=== PATIENT | male | born 1950 | race Caucasian/White ===

== ENCOUNTER 2020-05-18 20:58 | Emergency (ER) | payer OTHER, MEDICARE, SELFPAY ==
--- NOTE | ~2020-05-18 | XR_ITS ---
EXAMINATION: XR shoulder LT min 2V INDICATION: Left shoulder pain TECHNIQUE: Four views of the left shoulder are obtained. COMPARISON: None available FINDINGS: There is no fracture. 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 There is mild glenohumeral joint osteoarthritis. The soft tissues are normal. There is a partially imaged d ual-lead cardiac pacemaker of the left chest wall. Also seen are changes of endoluminal cardiac valve repair. IMPRESSION: 1. No acute osseous abnormality. Reviewed, dictated and finalized at location A.
[2020-05-18 20:59] VITALS: BP 158/63; PULSE 70; RESP 19; TEMP 37.3; O2SAT 99
--- NOTE | 2020-05-18 21:20 | ED.GENADULT ---
HPI - General Adult General Chief complaint: Fall Stated complaint: fall Time Seen by Provider: 05/18/20 21:11 Source: patient and family Mode of arrival: ambulatory Limitations: no limitations History of Present Illness HPI narrative: Is a 69-year-old male who presents emergency department for evaluation of left shoulder injury and left balderas injury patient tripped falling into a wall sustaining abrasions to the left balderas. Patient also notes that he injured the left shoulder he has moderate aching pain with decreased range of motion. Patient denies other injuries or complaints specifically no head injury syncope loss of consciousness patient presents per private vehicle. . Patient has not had anything for pain. Related Data Allergies Allergy/AdvReac Type Severity Reaction Status Date / Time protamine Allergy Anaphylactic Verified 05/18/20 21:11 Shock Review of Systems Review of Systems: All systems reviewed & are unremarkable except as noted in HPI and below PMFSH Past Medical History Medical History (Updated 05/18/20 @ 21:46 by Ever Thompson PA-C) Hypertension Obesity Surgical History Surgical History Heart valve replaced History of orthopedic surgery Social History Social History (Updated 05/18/20 @ 21:21 by Ever Thompson PA-C) Smoking status: Never smoker Gender identity (if verbalized by the patient): Male Exam Narrative: Exam Narrative: GENERAL: Well-appearing, well-nourished, and in no acute distress. HEAD: Normocephalic, atraumatic. EYES: PERRLA and EOMI. ENT: Nares clear, no rhinorrhea or epistaxis. Mucous membranes moist. Oropharynx without tonsillar hypertrophy exudate or other lesions. NECK: Supple. No adenopathy or masses. CHEST: Clear to auscultation. No respiratory distress. No wheezes rales or rhonchi HEART: Regular rate and rhythm. No murmur heard. Normal peripheral pulses. ABDOMEN: Soft, nontender, nondistended EXTREMITIES: Tenderness of the left shoulder remainder of extremity nontender. No midline cervical tenderness. SKIN: Warm, dry, no rash. NEURO: No focal deficits. Alert and oriented x3. Cranial nerves II through XII grossly intact. PSYCH: Normal mood and affect. Course Vital Signs Vital signs: Vital Signs Temperature 99.1 F 05/18/20 20:59 Pulse Rate 70 05/18/20 20:59 Respiratory Rate 19 05/18/20 20:59 Blood Pressure 158/63 H 05/18/20 20:59 Pulse Oximetry 99 05/18/20 20:59 Temperature 99.1 F 05/18/20 20:59 Pulse Rate 70 05/18/20 20:59 Respiratory Rate 05/18/20 20:59 Blood Pressure 158/63 H 05/18/20 20:59 Pulse Oximetry 99 05/18/20 20:59 Medical Decision Making MDM Narrative Medical decision making narrative: Patients injury or pain is consistent with musculoskeletal etiology. No signs of neurological or vascular compromise on exam. Compartments and tisues are soft without signs of compartment syndrome. Pain is felt appropriate for further evaluation on an outpatient basis. Patient placed in sling felt appropriate for outpatient reevaluation Vital Signs Vital Signs: Vital Signs Temperature 99.1 F 05/18/20 20:59 Pulse Rate 70 05/18/20 20:59 Respiratory Rate 05/18/20 20:59 Blood Pressure 158/63 H 05/18/20 20:59 Pulse Oximetry 99 05/18/20 20:59 Temperature 99.1 F 05/18/20 20:59 Pulse Rate 70 05/18/20 20:59 Respiratory Rate 05/18/20 20:59 Blood Pressure 158/63 H 05/18/20 20:59 Pulse Oximetry 99 05/18/20 20:59 Discharge Plan Discharge Clinical Impression: Acute pain of left shoulder Patient Disposition: Home, Self-Care Condition: Stable Instructions: Antibiotic Form, Shoulder Pain (ED), How to Use a Sling (ED) Additional Instructions: Follow up with your primary care doctor in 5-7 days for re-evaluation. Go to ER for worsening pain, vision changes, nausea/vomiting, fever/chills, weakness, chest pa
== END 2020-05-18 22:16 | disposition home or self-care (01) ==
PROVIDERS: Emergency Provider Emergency Medicine
DX: M25.512 Pain in left shoulder (principal); I10 Essential (primary) hypertension; E66.9 Obesity, unspecified; Z95.2 Presence of prosthetic heart valve; W01.0XXA Fall on same level from slipping, tripping and stumbling without subsequent striking against object, initial encounter
CPT/HCPCS: 73030; 99283; A4565; A9270

== ENCOUNTER 2020-07-23 23:50 | Inpatient (IN) | payer OTHER, MEDICARE, SELFPAY ==
--- NOTE | ~2020-07-23 | CT_ITS ---
EXAMINATION: CT abdomen pelvis wo con EXAM DATE: 07/24/2020 01:56 INDICATION: Altered mental status, weakness, sepsis. TECHNIQUE: Spiral CT of the abdomen and pelvis was performed without contrast. Axial, coronal and s agittal images were reviewed. The dose-length product (DLP) for this examination was 1665.56 mGy-cm. The exposure was tailored according to patient size (auto mA exposure control), and iterative recon struction (ASIR) was used as additional dose reduction technique. Comparison is made to prior examina tion from 08/27/2014. FINDINGS: The liver, spleen, adrenal glands and pancreas are unremarkable. There is 1.4 cm periphera lly calcified gallstone. Gallbladder otherwise unremarkable and only mildly distended. There is 4 mm left inferior calyceal stone. Punctate right nephrolithiasis. There is mild prostatomegaly. The blad ida is unremarkable. There is no retroperitoneal or pelvic lymphadenopathy. There is moderate scat tered aortic arteriosclerotic disease and mild ectasia. The appendix is not positively visualized. There is no pericecal inflammatory change to suggest appe ndicitis. The stomach and small bowel are unremarkable. There is moderate sigmoid colonic diverticu losis. There is no adjacent inflammatory change to suggest diverticulitis. There is expected amount of colonic stool. No free intraperitoneal gas. Pacemaker, aortic valve replacement, sternotomy wi res. Cardiomegaly. Basilar prominent reticulation, could be mild pulmonary edema. Findings consisten t with ankylosing spondylitis including sacroiliac fusion. There are no osteoblastic or osteolytic le sions identified. IMPRESSION: 1. No acute intra-abdominal findings. 2. Cardiomegaly, possible mild pulmonary edema. 3. Sigmoid diverticulosis. 4. Nephrolithiasis. 5. Cholelithiasis. Reviewed, dictated and finalized at location A.
--- NOTE | ~2020-07-23 | XR_ITS ---
EXAMINATION: XR chest 1V EXAM DATE: 07/24/2020 00:49 INDICATION: Altered mental status. Weakness. TECHNIQUE: Portable AP frontal chest x-ray was obtained. There is no prior study for comparison. FINDINGS: There is a dual lead pacemaker/AICD seen with leads projecting over the expected locations of the right atrial appendage and right ventricle. Sternotomy wires are present without findings to s uggest sternal dehiscence. Aortic valve replacement. There is aortic arteriosclerosis. Elevated right hemidiaphragm with colonic interposition. No confluent consolidation, pneumothorax or pleural effusi on suspected. There are mild bony degenerative changes. IMPRESSION: 1. Elevated right hemidiaphragm with limited lung base evaluation. 2. No definite acute cardiopulmonary findings. Reviewed, dictated and finalized at location A.
--- NOTE | ~2020-07-23 | CT_ITS ---
EXAMINATION: CT brain wo con EXAM DATE: 07/24/2020 00:44 INDICATION: Transient alteration of awareness. Increasing confusion. TECHNIQUE: Spiral CT of the head was performed without contrast. Axial, coronal and sagittal images were reviewed. The dose-length product (DLP) for this examination was 681.00 mGy-cm. The exposure w as tailored according to patient size, and iterative reconstruction (ASIR) was used as additional dos e reduction technique. There is no prior study for comparison. FINDINGS: There is no acute intraparenchymal hemorrhage. No evidence of intraparenchymal brain mass lesion. No evidence of acute infarction. Please note that initial head CT has limited sensitivity f or small or acute infarctions. 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 There is moderat e periventricular and subcortical hypodensity, nonspecific but probably related to small vessel ische andreia disease. There is mild to moderate prominence of the sulci and ventricles related to cerebral a trophy. There is intracranial carotid arteriosclerosis. There are no extra-axial collections. The re is no mass effect or midline shift. The orbits are unremarkable. Soft tissue is unremarkable. T he visualized sinuses and mastoid air cells are well aerated. IMPRESSION: 1. No acute intracranial findings. 2. Chronic age related findings. Reviewed, dictated and finalized at location A.
[2020-07-23 23:54] VITALS: BP 142/62; PULSE 90; RESP 23; O2SAT 95
[2020-07-24] VITALS (8 sets, daily range): BP systolic 122–150; BP diastolic 51–76; PULSE 77–82; RESP 14–25; TEMP 35.8–36.7; O2SAT 93–97; BMI 35.1
[2020-07-24 01:06] LABS: Basophils Absolute Auto 0.2 K/mm3 (0.0-0.1); Basophils Percent Auto 0.5 % (0.2-1.2); Hematocrit 54.7 % (42.0-52.0); Hemoglobin 17.9 g/dL (14.0-18.0); Immature Granulocyte Absolute 0.37 K/mm3 (0.00-0.031); Immature Granulocyte Percent A 1.3 % (0-0.5); Lymphocytes Absolute Auto 1.29 K/mm3 (0.9-3.2); Lymphocytes Percent Auto 4.6 % (18.3-44.2); Mean Corpuscular HGB Conc 32.7 g/dl (32-36); Mean Corpuscular Hemoglobin 29.5 pg (26-34); Mean Corpuscular Volume 90.1 fl (80-100); Mean Platelet Volume 10.1 fl (7.4-10.4); Monocytes Absolute Auto 1.4 K/mm3 (0.1-0.6); Monocytes Percent Auto 5.1 % (2.6-8.5); Neutrophils Absolute Auto 24.7 K/mm3 (1.3-6.7); Neutrophils Percent Auto 88.5 % (45.5-73.1); Platelet Count Result 224 k/mm3 (150-375); Red Blood Count 6.07 M/mm3 (4.6-6.20); Red Cell Distribution Width 18.6 % (11.5-14.5)
[2020-07-24 01:16] LABS: Add Urine Microscopic? YES; Appearance Urine Turbid (Clear); Bacteria Urine 2+ /hpf; Bilirubin Urine Negative (Negative); Blood Urine 2+ (Negative); Color Urine Yellow (Yellow); Glucose Urine UA Negative (Negative); Ketones Urine Negative (Negative); Leukocyte Esterase Ur 3+ LEU/UL (Negative); Mucus Urine Few /lpf; Nitrate Urine Negative (Negative); Protein Urine 2+ mg/dL (Negative); RBC Urine >75 /hpf (0-2); Specific Grav Ur 1.018 (1.001-1.035); Squamous Epithelial Cell Urine Few /hpf (Few); Urobilinogen Urine Negative mg/dL (<2.0); WBC Clumps Urine Present /HPF; WBC Urine >75 /hpf
[2020-07-24 01:24] LABS: Ammonia < 9 umol/L (9-30)
[2020-07-24 01:30] LABS: Alanine Aminotransferase 22 U/L (4-50); Albumin Level 4.9 g/dL (3.5-5.1); Alkaline Phosphatase 95 U/L (38-126); Anion Gap 15 mmol/L (8-16); Aspartate Amino Transferase 43 U/L (17-59); Bilirubin,Total 1.4 mg/dL (0.2-1.3); Blood Urea Nitrogen 37 mg/dL (9-20); Calcium 9.4 mg/dL (8.4-10.2); Carbon Dioxide 31 mmol/L (22-30); Chloride 96 mmol/L (98-107); Estimated CRCL calculation 47 ml/min; Estimated Glomerular Filt Rate 40; Glucose 110 mg/dL (75-110); Potassium 4.6 mmol/L (3.4-5.0); Sodium 142 mmol/L (137-145)
--- NOTE | 2020-07-24 01:58 | ED.AMS ---
HPI - Altered Mental Status General Chief Complaint: Altered Mental Status Stated Complaint: confusion/unsteady gait Time Seen by Provider: 07/23/20 23:55 History of Present Illness HPI narrative: Patient is a 69-year-old male who presents the ER with altered mental status. reports that she came home saying he was sitting on the toilet for an unknown amount of time and was too weak to get off of it. He then was too weak to stand out of bed this evening and fell to the ground urinating on himself. He is unsure what he has been doing for the last day. reports he had decreased p.o. intake yesterday as well and his sugars got low. Denies any fevers or chills or sweats. He has no pain in his chest or abdomen. Related Data Home Medications Medication Instructions Recorded Confirmed apixaban 5 mg PO BID 07/24/20 07/24/20 aspirin 81 mg PO DAILY 07/24/20 07/24/20 budesonide-formoterol 2 puff INHALATION BID 07/24/20 07/24/20 furosemide 40 mg PO DAILY 07/24/20 07/24/20 gabapentin 500 mg PO TID 07/24/20 07/24/20 glipizide 10 mg PO BID 07/24/20 07/24/20 isosorbide mononitrate 15 mg PO DAILY 07/24/20 07/24/20 lisinopril 10 mg PO DAILY 07/24/20 07/24/20 metformin 1,000 mg PO DAILY 07/24/20 07/24/20 metoprolol tartrate 50 mg PO Q12H 07/24/20 07/24/20 oxycodone-acetaminophen 1 tablet PO Q6H PRN 07/24/20 07/24/20 pantoprazole 40 mg PO QAM 07/24/20 07/24/20 prednisone 20 mg PO DAILY 07/24/20 07/24/20 Allergies Allergy/AdvReac Type Severity Reaction Status Date / Time protamine Allergy Anaphylactic Verified 07/24/20 00:46 Shock Review of Systems Review of Systems: ROS unobtainable: Yes unobtainable due to medical condition (Patient oriented x3 but is unsure of the situation causing his er visit) [facility] Past Medical History Medical History (Updated 07/25/20 @ 06:43 by Johnie Harrington MD) Hypertension Obesity Social History Social History (Updated 05/18/20 @ 21:21 by Ever Thompson PA-C) Smoking status: Former smoker Alcohol intake: never Substance use: never Gender identity (if verbalized by the patient): Male Spiritual care concerns: No Exam Narrative: Exam Narrative: GENERAL: Well-appearing, well-nourished, and in no acute distress. HEAD: Normocephalic, atraumatic. ENT: Mucous membranes moist. CHEST: Clear to auscultation. No respiratory distress. HEART: Regular rate and rhythm. Normal peripheral pulses. ABDOMEN: Soft, nontender, nondistended. EXTREMITIES: Normal range of motion. No edema. SKIN: Warm, dry, no rash. NEURO: Alert and oriented x3 but confused about events of the day. Course Course Emergency Course: Patient accepted to hospital service. Ceftriaxone started. Vital Signs Vital signs: Vital Signs Pulse Rate 90 07/23/20 23:54 Respiratory Rate 23 H 07/23/20 23:54 Blood Pressure 142/62 H 07/23/20 23:54 Pulse Oximetry 95 07/23/20 23:54 Temperature 98.2 F 07/25/20 06:22 Pulse Rate 88 07/25/20 06:22 Respiratory Rate 16 07/25/20 06:22 Blood Pressure 162/79 H 07/25/20 06:22 Pulse Oximetry 98 07/25/20 06:22 MDM - Altered Mental Status Lab Data Result diagrams: 07/25/20 05:37 07/25/20 05:37 Labs: Lab Results 07/24/20 07/24/20 07/24/20 Range/Units 00:49 00:49 00:49 WBC 28.0 H (4.5-10.0) K/mm3 RBC 6.07 (4.6-6.20) M/mm3 Hgb 17.9 (14.0-18.0) g/dL Hct 54.7 H (42.0-52.0) % MCV 90.1 (80-100) fl MCH 29.5 (26-34) pg MCHC 32.7 (32-36) g/dl RDW 18.6 H (11.5-14.5) % Plt Count 224 (150-375) k/mm3 MPV 10.1 (7.4-10.4) fl Immature Gran % (Auto) 1.3 H (0-0.5) % Neut % (Auto) 88.5 H (45.5-73.1) % Lymph % (Auto) 4.6 L (18.3-44.2) % Rankin % (Auto) 5.1 (2.6-8.5) % Eos % (Auto) 0.0 (0-4.4) % Baso % (Auto) 0.5 (0.2-1.2) % Lymph # (Auto) 1.29 (0.9-3.2) K/mm3 Rankin # (Auto) 1.4 H (0.1-0.6) K/mm3 Eos # (Auto) 0.0 (0-0.3) K/mm3 Baso
[2020-07-24 02:06] LABS: Lactic Acid Reflex 2.3 mmol/L (0.7-2.1)
[2020-07-24] MEDS: SODIUM CHLORIDE 0.9% IV 1,000 ML 999 ML IV CONT (02:30)
[2020-07-24 02:58] LABS: Alveolar/Arterial O2 Gradient 38.9 mmHg; Base Excess ABG 0.1 mEq/l (+/-2.0); Device ROOM AIR; Fractional Inspired Oxygen 21 %; HCO3 ABG 23.5 mEq/l (22.0-26.0); Modified Allen's Test Pass; Oxygen Content ABG 19.3 %vol (16.0-22.0); Oxygen Saturation ABG 94.8 % (95.0-100.0); Oxyhemoglobin 91.3 % THb (90.0-100.0); PCO2 ABG 34.5 mmHg (35.0-45.0); PO2 ABG 69.5 mmHg (80.0-100.0); PO2 FiO2 Ratio Arterial Blood 3.31 %; Site Drawn RIGHT RADIAL; pH ABG 7.451 (7.350-7.450)
[2020-07-24] MEDS: SODIUM CHLORIDE 0.9% IV 1,000 ML 125 ML IV CONT ×3 (03:33→21:46)
--- NOTE | 2020-07-24 03:54 | ADMGEN ---
This patient, Dong Chacon, was admitted to Medical Room 346-01. Patient/family oriented to hospital policies and general routines including ID bracelet, bed and alarms, visiting hours, pain management, procedures, bathroom and other care routines, personal items, smoking policy, room service/diet, and visiting hours. Valuables list has been completed. Information on how to activate the Rapid Response Team has been discussed. Patient/Family are encouraged to report perceived risks to care and to ask questions if they do not understand what they are told or what they should do.
[2020-07-24 03:55] LABS: Glucose Point of Care 96 (65-105)
[2020-07-24 04:51] LABS: Reflex Lactic Acid Yes or No Add Lactic
[2020-07-24 05:06] LABS: Ammonia < 9 umol/L (9-30)
[2020-07-24 06:15] LABS: Lactic Acid 4.1 mmol/L (0.7-2.1)
[2020-07-24 07:54] LABS: Glucose Point of Care 122 (65-105)
--- NOTE | 2020-07-24 09:57 | ECG_ITS ---
Measurements Intervals [place] Rate: 81 P: 28 SC: 164 QRS: -3 QRSD: 102 T: 131 QT: 441 QTc: 513 Interpretive Statements SINUS RHYTHM LEFT VENTRICULAR HYPERTROPHY AND ST-T CHANGE BORDERLINE ST-T WAVE ABNORMALITY- - LAT/HIGH LAT LEADS BASELINE ARTIFACT- I, II, III, AVR, AVL, AVF, V2-V5 BORDERLINE ECG Electronically Signed On 07-24-2020 12:19:56 CDT by Dev Parks D.O.
[2020-07-24 12:28] LABS: Glucose Point of Care 133 (65-105)
--- NOTE | 2020-07-24 14:55 | PM.IMHP ---
H&P: HPI History of Present Illness Date/Time: 07/24/20 14:55 Chief complaint: Severe sepsis, metabolic enephalopathy, uti Narrative: Dong Chacon is a 69 year old male was brought to the emergency department from home apparently patient was sitting on the toilet for very long time on his was out upon arrival patient was able to help him get up the toilet, later in the evening while in the bed patient fell and urinated on himself it appeared quite somnolent and confused patient was brought to the emergency department for further evaluate CT scan of the head is negative for any acute, CT scan of abdomen and pelvis did not show any acute pathology similarly chest x-ray negative for acute Pulmonary disease, patient has significant elevated white and urine shows leukourea suggesting most likely patient has a UTI patient was started on Rocephin from emergency depart, currently patient is feeling better still somewhat confused and unable to provide detailed review of symptom, will continue Rocephin will have a PT OT evaluate the patient and further recommendation to follow. Review of Systems Review of Systems: All systems reviewed & are unremarkable except as noted in HPI and below PMFSH Past Medical History Medical History (Updated 07/24/20 @ 15:22 by Cecy Kc MD) Hypertension Obesity Social History Social History (Updated 05/18/20 @ 21:21 by Ever Thompson PA-C) Smoking status: Former smoker Alcohol intake: never Substance use: never Gender identity (if verbalized by the patient): Male Spiritual care concerns: No Meds Home Medications and Allergies Home Medications Medication Instructions Recorded Confirmed Type apixaban 5 mg PO BID 07/24/20 07/24/20 History aspirin 81 mg PO DAILY 07/24/20 07/24/20 History budesonide-formoterol 2 puff INHALATION BID 07/24/20 07/24/20 History furosemide 40 mg PO DAILY 07/24/20 07/24/20 History gabapentin 500 mg PO TID 07/24/20 07/24/20 History glipizide 10 mg PO BID 07/24/20 07/24/20 History isosorbide mononitrate 15 mg PO DAILY 07/24/20 07/24/20 History lisinopril 10 mg PO DAILY 07/24/20 07/24/20 History metformin 1,000 mg PO DAILY 07/24/20 07/24/20 History metoprolol tartrate 50 mg PO Q12H 07/24/20 07/24/20 History oxycodone-acetaminophen 1 tablet PO Q6H PRN 07/24/20 07/24/20 History pantoprazole 40 mg PO QAM 07/24/20 07/24/20 History prednisone 20 mg PO DAILY 07/24/20 07/24/20 History Allergies Allergy/AdvReac Type Severity Reaction Status Date / Time protamine Allergy Anaphylactic Verified 07/24/20 00:46 Shock Vital Signs Vital Signs - 24 hr 07/23/20 23:54 07/24/20 03:00 07/24/20 05:11 Temperature Pulse Rate 90 82 80 Respiratory Rate 23 H 22 H 25 H Blood Pressure 142/62 H 126/57 L Pulse Oximetry 95 93 94 07/24/20 05:34 07/24/20 10:00 07/24/20 14:00 Temperature 98.1 F 97.2 F L 97.5 F L Pulse Rate 80 79 77 Respiratory Rate 14 22 H 20 Blood Pressure 139/66 122/53 L 126/51 L Pulse Oximetry 95 97 96 Exam Const: General: comfortable and no acute distress HENMT: General nose exam: Normal nares present Eyes: General: appearance normal, both eyes and all related structures Sclera: sclerae normal Neck: Neck: supple Resp: Effort & Inspection: normal respiratory effort Auscultation: clear to auscultation bilaterally Cardio: Rate: regular rate Rhythm: regular rhythm GI: GI Palp: Yes Soft to palpation Auscultation: normal bowel sounds Skin: General skin exam: normal color Neuro: Other: patient still quite confused Extrem: General: normal to inspection Psych: Other: patient still quite confused H&P: Results Labs Labs: Short CBC 07/24/20 Range/Units 00:49 WBC 28.0 H (4.5-10.0) K/mm3 Hgb 17.9 (14.0-18.0) g/dL Hct 54.7 H (42.0-52.0) % Plt Count 224 (150-375) k/mm3 [facility] 07/24/20 00:49 Sodium 142 Potassium 4.6 Chloride 96 L Carbon Dioxide 31 H BUN 37 H Creatinine
[2020-07-24 16:55] LABS: Glucose Point of Care 144 (65-105)
[2020-07-24 22:40] LABS: Glucose Point of Care 165 (65-105)
[2020-07-25] VITALS (8 sets, daily range): BP systolic 136–208; BP diastolic 72–86; PULSE 76–110; RESP 14–22; TEMP 36.1–37.3; O2SAT 93–99
[2020-07-25] MEDS: SODIUM CHLORIDE 0.9% IV 1,000 ML 125 ML IV CONT ×2 (05:27→14:11)
[2020-07-25 06:21] LABS: Hematocrit 40.7 % (42.0-52.0); Hemoglobin 13.2 g/dL (14.0-18.0); Mean Corpuscular HGB Conc 32.4 g/dl (32-36); Mean Corpuscular Hemoglobin 29.5 pg (26-34); Mean Corpuscular Volume 90.8 fl (80-100); Mean Platelet Volume 10.4 fl (7.4-10.4); Platelet Count Result 133 k/mm3 (150-375); Red Blood Count 4.48 M/mm3 (4.6-6.20); Red Cell Distribution Width 17.3 % (11.5-14.5); White Blood Count 16.3 K/mm3 (4.5-10.0)
[2020-07-25 06:33] LABS: Anion Gap 8 mmol/L (8-16); Blood Urea Nitrogen 22 mg/dL (9-20); Calcium 8.3 mg/dL (8.4-10.2); Carbon Dioxide 25 mmol/L (22-30); Chloride 106 mmol/L (98-107); Estimated CRCL calculation 74 ml/min; Estimated Glomerular Filt Rate > 60; Glucose 144 mg/dL (75-110); Potassium 3.8 mmol/L (3.4-5.0); Sodium 139 mmol/L (137-145)
[2020-07-25 07:39] LABS: Glucose Point of Care 142 (65-105)
[2020-07-25 12:02] LABS: Glucose Point of Care 130 (65-105)
--- NOTE | 2020-07-25 15:57 | PM.IMPN ---
Progress Note: A&P Assessment and Plan (1) Acute alteration in mental status: Code(s): R41.82 - Altered mental status, unspecified Status: Acute Assessment and Plan: 07/25/20 15:57 Dong Chacon is a 69 year old male was brought to the emergency department from home apparently patient was sitting on the toilet for very long time on his was out upon arrival patient was able to help get up the toilet, there is a evening while in the bed patient fell and urinated on himself it appeared quite somnolent and confused patient was brought to the emergency department for further evaluate CT scan of the head is negative for any acute, CT scan of abdomen and pelvis did not show any acute pathology similarly chest x-ray negative for acute Pulmonary disease, patient has significant elevated white 28,000 and urine shows leukourea suggesting most likely patient has a UTI patient was started on Rocephin from emergency depart, currently, today 07/25 patient more awake is feeling better denies any abdominal pain nausea or vomiting fever or chills, his white count is trending to 16,000 compared to 28,000 upon arrival urine culture is growing E coli pansensitive will continue Rocephin and monitor, will have a PT OT evaluate the patient and further recommendation to follow. (2) UTI (urinary tract infection): Code(s): N39.0 - Urinary tract infection, site not specified Status: Acute Assessment and Plan: plan is above (3) Hypertension: Code(s): I10 - Essential (primary) hypertension Status: Acute Assessment and Plan: will continue home regimen and monitor (4) Generalized weakness: Code(s): R53.1 - Weakness Status: Acute Assessment and Plan: will have a PT OT evaluate the patient and further recommendation to follow Subjective Date/time seen: 07/25/20 15:57 Dong Chacon is a 69 year old male was brought to the emergency department from home apparently patient was sitting on the toilet for very long time on his was out upon arrival patient was able to help get up the toilet, there is a evening while in the bed patient fell and urinated on himself it appeared quite somnolent and confused patient was brought to the emergency department for further evaluate CT scan of the head is negative for any acute, CT scan of abdomen and pelvis did not show any acute pathology similarly chest x-ray negative for acute Pulmonary disease, patient has significant elevated white 28,000 and urine shows leukourea suggesting most likely patient has a UTI patient was started on Rocephin from emergency depart, currently, today 07/25 patient more awake is feeling better denies any abdominal pain nausea or vomiting fever or chills, his white count is trending to 16,000 compared to 28,000 upon arrival urine culture is growing E coli pansensitive will continue Rocephin and monitor, will have a PT OT evaluate the patient and further recommendation to follow. Review of Systems Review of Systems: ROS unobtainable: Yes unobtainable due to medical condition Exam Const: General: comfortable and no acute distress HENMT: General nose exam: Normal nares present Eyes: General: appearance normal, both eyes and all related structures Sclera: sclerae normal Neck: Neck: supple Resp: Effort & Inspection: normal respiratory effort Auscultation: clear to auscultation bilaterally Cardio: Rate: regular rate Rhythm: regular rhythm GI: Auscultation: normal bowel sounds Skin: General skin exam: normal color Neuro: Other: patient still quite confused Extrem: General: normal to inspection Psych: Other: patient still quite confused Objective Data Vital Signs Vital Signs: Vital Signs - 24 hr 07/24/20 19:42 07/24/20 20:52 07/24/20 23:30 Temperature 96.4 F L 97.5 F L Pulse Rate 81 80 80 Respiratory Rate 18 14 21 H Blood Pressure 144/62 H 150/76 H Pulse Oximetry 97 94 95 07/25/20 02
[2020-07-25 17:14] LABS: Glucose Point of Care 113 (65-105)
[2020-07-25 21:14] LABS: Glucose Point of Care 149 (65-105)
[2020-07-26 02:35] VITALS: PULSE 74; RESP 20; O2SAT 95
[2020-07-26 05:53] VITALS: BP 191/89; PULSE 79; RESP 16; TEMP 36.9; O2SAT 93
[2020-07-26 06:42] LABS: Hematocrit 40.4 % (42.0-52.0); Hemoglobin 13.4 g/dL (14.0-18.0); Mean Corpuscular HGB Conc 33.2 g/dl (32-36); Mean Corpuscular Hemoglobin 29.2 pg (26-34); Mean Platelet Volume 10.2 fl (7.4-10.4); Platelet Count Result 143 k/mm3 (150-375); Red Blood Count 4.59 M/mm3 (4.6-6.20); Red Cell Distribution Width 16.5 % (11.5-14.5); White Blood Count 10.3 K/mm3 (4.5-10.0)
[2020-07-26 06:54] LABS: Anion Gap 7 mmol/L (8-16); Blood Urea Nitrogen 16 mg/dL (9-20); Calcium 8.7 mg/dL (8.4-10.2); Carbon Dioxide 28 mmol/L (22-30); Chloride 103 mmol/L (98-107); Estimated CRCL calculation 74 ml/min; Estimated Glomerular Filt Rate > 60; Glucose 131 mg/dL (75-110); Sodium 138 mmol/L (137-145)
[2020-07-26 08:19] LABS: Glucose Point of Care 116 (65-105)
[2020-07-26 11:54] LABS: Glucose Point of Care 116 (65-105)
[2020-07-26] MEDS: HYDROcodone/acetaminophen (*CRX) 5-325 MG TABLET 1 TAB PO (12:58)
[2020-07-26 15:48] VITALS: BP 162/104; PULSE 86; RESP 18; TEMP 36.6; O2SAT 95
--- NOTE | 2020-07-26 17:23 | PM.IMPN ---
Progress Note: A&P Assessment and Plan (1) Acute alteration in mental status: Code(s): R41.82 - Altered mental status, unspecified Status: Acute Assessment and Plan: 07/26/20 17:23 Dong Chacon is a 69 year old male was brought to the emergency department from home apparently patient was sitting on the toilet for very long time on his was out upon arrival patient was able to help get up the toilet, there is a evening while in the bed patient fell and urinated on himself it appeared quite somnolent and confused patient was brought to the emergency department for further evaluate CT scan of the head is negative for any acute, CT scan of abdomen and pelvis did not show any acute pathology similarly chest x-ray negative for acute Pulmonary disease, patient has significant elevated white 28,000 and urine shows leukourea suggesting most likely patient has a UTI patient was started on Rocephin from emergency depart, currently, today 07/26 patient more awake is feeling better denies any abdominal pain nausea or vomiting fever or chills, his white count is trending to 10,300 compared to 28,000 upon arrival urine culture is growing E coli pansensitive pansensitive will continue Rocephin and monitor, will have a PT OT evaluate the patient and further recommendation to follow. (2) UTI (urinary tract infection): Code(s): N39.0 - Urinary tract infection, site not specified Status: Acute Assessment and Plan: plan is above (3) Hypertension: Code(s): I10 - Essential (primary) hypertension Status: Acute Assessment and Plan: will continue home regimen and monitor (4) Generalized weakness: Code(s): R53.1 - Weakness Status: Acute Assessment and Plan: will have a PT OT evaluate the patient and further recommendation to follow Subjective Date/time seen: 07/26/20 17:23 Dong Chacon is a 69 year old male was brought to the emergency department from home apparently patient was sitting on the toilet for very long time on his was out upon arrival patient was able to help get up the toilet, there is a evening while in the bed patient fell and urinated on himself it appeared quite somnolent and confused patient was brought to the emergency department for further evaluate CT scan of the head is negative for any acute, CT scan of abdomen and pelvis did not show any acute pathology similarly chest x-ray negative for acute Pulmonary disease, patient has significant elevated white 28,000 and urine shows leukourea suggesting most likely patient has a UTI patient was started on Rocephin from emergency depart, currently, today 07/26 patient more awake is feeling better denies any abdominal pain nausea or vomiting fever or chills, his white count is trending to 10,300 compared to 28,000 upon arrival urine culture is growing E coli pansensitive pansensitive will continue Rocephin and monitor, will have a PT OT evaluate the patient and further recommendation to follow. Exam Const: General: comfortable and no acute distress HENMT: General nose exam: Normal nares present Eyes: General: appearance normal, both eyes and all related structures Sclera: sclerae normal Neck: Neck: supple Resp: Effort & Inspection: normal respiratory effort Auscultation: clear to auscultation bilaterally Cardio: Rate: regular rate Rhythm: regular rhythm GI: Auscultation: normal bowel sounds Skin: General skin exam: normal color Neuro: Other: patient still quite confused Extrem: General: normal to inspection Psych: Other: patient still quite confused Objective Data Vital Signs Vital Signs: Vital Signs - 24 hr 07/25/20 21:37 07/25/20 22:25 07/26/20 02:35 Temperature 99.1 F Pulse Rate 82 80 74 Respiratory Rate 14 22 H 20 Blood Pressure 208/80 H Pulse Oximetry 97 95 95 07/26/20 05:53 07/26/20 15:48 Temperature 98.4 F 97.8 F Pulse Rate 79 86 Respiratory Rate 16 18 Blo
[2020-07-26 18:25] LABS: Glucose Point of Care 151 (65-105)
[2020-07-26 20:00] VITALS: BP 187/116; PULSE 81; RESP 18; TEMP 36.3; O2SAT 95
[2020-07-26 23:06] LABS: Glucose Point of Care 121 (65-105)
[2020-07-27] VITALS: BP 204/110; PULSE 76; RESP 18; TEMP 36.1; O2SAT 94
[2020-07-27 02:09] VITALS: PULSE 76
[2020-07-27] MEDS: METOPROLOL TARTRATE 50 MG TAB PO (02:09)
[2020-07-27] MEDS: hydrALAZINE HCL 20 MG/ML VIAL 10 MG IV PUSH (02:09)
[2020-07-27 03:15] VITALS: PULSE 81; RESP 36; O2SAT 90
[2020-07-27 04:00] VITALS: BP 160/100; PULSE 58; RESP 14; TEMP 36.4; O2SAT 95
[2020-07-27 06:13] LABS: Hematocrit 40.9 % (42.0-52.0); Hemoglobin 13.5 g/dL (14.0-18.0); Mean Corpuscular Hemoglobin 28.7 pg (26-34); Mean Platelet Volume 9.7 fl (7.4-10.4); Platelet Count Result 165 k/mm3 (150-375); Red Cell Distribution Width 16.2 % (11.5-14.5)
[2020-07-27 06:24] LABS: Anion Gap 12 mmol/L (8-16); Blood Urea Nitrogen 18 mg/dL (9-20); Calcium 8.9 mg/dL (8.4-10.2); Carbon Dioxide 24 mmol/L (22-30); Chloride 103 mmol/L (98-107); Estimated CRCL calculation 81 ml/min; Estimated Glomerular Filt Rate > 60; Glucose 137 mg/dL (75-110); Sodium 139 mmol/L (137-145)
[2020-07-27 07:49] LABS: Glucose Point of Care 120 (65-105)
[2020-07-27 08:00] VITALS: BP 196/85; PULSE 63; RESP 18; TEMP 36.5; O2SAT 93
[2020-07-27 11:38] LABS: Glucose Point of Care 131 (65-105)
[2020-07-27 12:00] VITALS: BP 166/47; PULSE 62; RESP 16; TEMP 35.9; O2SAT 96
--- NOTE | 2020-07-27 15:45 | PCPTNOTE ---
Attempted to see patient at 1436 and he was sleeping and requested for therapist to come back later. Therapist came back at 1533 and patient stated that he was getting ready to go home. Patient did not wish to do exercises or ambulate this afternoon due to him going home.
[2020-07-27 16:43] LABS: Glucose Point of Care 156 (65-105)
--- NOTE | 2020-08-21 18:17 | PM.DS ---
DS: Admitting Diagnosis Admitting Diagnosis Admitting Diagnosis: Severe sepsis, metabolic enephalopathy, uti DS: Discharge Diagnosis Discharge Diagnosis (1) Acute alteration in mental status: Code(s): R41.82 - Altered mental status, unspecified Status: Acute Assessment and Plan: 07/26/20 17:23 Dong Chacon is a 69 year old male was brought to the emergency department from home apparently patient was sitting on the toilet for very long time on his was out upon arrival patient was able to help get up the toilet, there is a evening while in the bed patient fell and urinated on himself it appeared quite somnolent and confused patient was brought to the emergency department for further evaluate CT scan of the head is negative for any acute, CT scan of abdomen and pelvis did not show any acute pathology similarly chest x-ray negative for acute Pulmonary disease, patient has significant elevated white 28,000 and urine shows leukourea suggesting most likely patient has a UTI patient was started on Rocephin from emergency depart, currently, today 07/26 patient more awake is feeling better denies any abdominal pain nausea or vomiting fever or chills, his white count is trending to 10,300 compared to 28,000 upon arrival urine culture is growing E coli pansensitive pansensitive will continue Rocephin and monitor, will have a PT OT evaluate the patient and further recommendation to follow. (2) UTI (urinary tract infection): Code(s): N39.0 - Urinary tract infection, site not specified Status: Acute Assessment and Plan: plan is above (3) Hypertension: Code(s): I10 - Essential (primary) hypertension Status: Acute Assessment and Plan: will continue home regimen and monitor (4) Generalized weakness: Code(s): R53.1 - Weakness Status: Acute Assessment and Plan: will have a PT OT evaluate the patient and further recommendation to follow DS: Summary Hospital Course Reason for hospitalization: Chief complaint: Severe sepsis, metabolic enephalopathy, uti Narrative: Dong Chacon is a 69 year old male was brought to the emergency department from home apparently patient was sitting on the toilet for very long time on his was out upon arrival patient was able to help him get up the toilet, later in the evening while in the bed patient fell and urinated on himself it appeared quite somnolent and confused patient was brought to the emergency department for further evaluate CT scan of the head is negative for any acute, CT scan of abdomen and pelvis did not show any acute pathology similarly chest x-ray negative for acute Pulmonary disease, patient has significant elevated white and urine shows leukourea suggesting most likely patient has a UTI patient was started on Rocephin from emergency depart, currently patient is feeling better still somewhat confused and unable to provide detailed review of symptom, will continue Rocephin will have a PT OT evaluate the patient and further recommendation to follow. Hospital Course: 07/26/20 17:23 Dong Chacon is a 69 year old male was brought to the emergency department from home apparently patient was sitting on the toilet for very long time on his was out upon arrival patient was able to help get up the toilet, there is a evening while in the bed patient fell and urinated on himself it appeared quite somnolent and confused patient was brought to the emergency department for further evaluate CT scan of the head is negative for any acute, CT scan of abdomen and pelvis did not show any acute pathology similarly chest x-ray negative for acute Pulmonary disease, patient has significant elevated white 28,000 and urine shows leukourea suggesting most likely patient has a UTI patient was started on Rocephin from emergency depart, currently, today 07/26 patient more awake is feeling better denies any abdominal pain nausea or vomiting fev
== END 2020-07-27 17:28 | disposition home or self-care (01) | DRG 689 ==
LOC: ANHED 07-24 00:26 → ANH3MED 07-24 04:27
PROVIDERS: Admitting Provider Family Medicine; Emergency Provider Emergency Medicine; Visit Provider Family Medicine
DX: N39.0 Urinary tract infection, site not specified (principal); G93.41 Metabolic encephalopathy; I10 Essential (primary) hypertension
CPT/HCPCS: 36415; 36600; 70450; 71045; 74176; 80048; 80053; 81001; 82140; 82805; 83605; 85025; 85027; 87040; 87077; 87086; 87088; 87186; 93005; 96365; 97161; 97165; 97530; 97535; 99285; A9270; J0360; J0696; J7030

== ENCOUNTER 2021-10-30 03:09 | Observation (INO) | payer OTHER, MEDICARE, SELFPAY ==
[2021-10-30] VITALS (34 sets, daily range): BP systolic 80–152; BP diastolic 28–78; PULSE 60–95; RESP 13–29; TEMP 36.1; O2SAT 95–100; BMI 30.4
--- NOTE | ~2021-10-30 | XR_ITS ---
EXAMINATION: XR chest 1V portable DATE: 11/01/2021 10:53 INDICATION: Congestive heart failure. TECHNIQUE: A single frontal view of the chest was obtained on 2 radiographs. COMPARISON: Chest single view 10/30/2021, chest CT 10/30/2021 FINDINGS: The lung volumes are small. There is a diffuse interstitial pattern in the lungs. There is airspace opacities in the mid and lower lung zones. There are small pleural effusions. No pneumothora x. Cardiomegaly is noted. There are changes of aortic valve replacement. Median sternotomy wires are noted. There is a left chest wall pacer with leads in the right atrium and right ventricle. IMPRESSION: 1. Worsened small lung volumes with worsened diffuse lung disease, consistent with mild pulmonary magdalene ma and lower lung atelectasis versus pneumonia. 2. Small pleural effusions. 3. Cardiomegaly. Reviewed, dictated and finalized at location A. ETES TERRITORY MANAGER IMPRESSION: 1. Worsened small lung volumes with worsened diffuse lung disease, consistent w ith mild pulmonary edema and lower lung atelectasis versus pneumonia. 2. Small pleural effusions. 3. Cardiomegaly.
--- NOTE | ~2021-10-30 | CT_ITS ---
EXAMINATION: CT chest abdomen pelvis w con DATE: 10/30/2021 16:07 INDICATION: Right upper quadrant abdominal pain. Abnormal chest radiograph. TECHNIQUE: Computed tomography (CT) of the chest, abdomen, and pelvis was performed with 100 mL Omnip aque 350 intravenous contrast. Automated exposure control and iterative reconstruction technique were employed. The dose-length product was 1565.23 mGy-cm. COMPARISON: Chest single view 10/30/21, CT abdomen and pelvis 07/24/2020 FINDINGS: CHEST CT: There is diffuse septal thickening in the lungs. There is mild atelectasis bilaterally. No bronchiect asis or honeycombing. There are small pleural effusions. Cardiomegaly is noted. There are changes of aortic valve replacement. There are coronary artery calcifications. There are changes of coronary art elva bypass grafting. There is a left chest wall pacer with leads in the right atrium and right ventri toya. There is mild mediastinal and right hilar lymphadenopathy. There are bridging endplate osteophyt es at multiple levels in the spine, consistent with diffuse idiopathic skeletal hyperostosis (DISH). ABDOMEN/PELVIS CT: The liver demonstrates surface nodularity, consistent with cirrhosis. There is a gallstone in the gal lbladder, which is normal in size. There is mild splenomegaly. There is a small area of peripheral sc arring in the spleen. The pancreas and adrenal glands are normal. There is cortical thinning in the k idneys. There are cysts in the kidneys measuring up to 15 mm on the left. There is a 3 mm stone in ri ght kidney. There is a 4 mm stone in left kidney. The prostate is mildly enlarged. There is diverticu losis of the colon without evidence of diverticulitis. There is a gastrostomy tube in expected positi on. The appendix is not visualized. There is a Mckeon catheter in the bladder. There is a mildly enlar ged periportal node, likely reactive. There is no free intraperitoneal fluid. There is calcified athe rosclerosis of the aorta and many of the other arteries. 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 There is ankylosis of the sacroiliac joints. There is modera te lumbar spondylosis. IMPRESSION: 1. Mild pulmonary edema. 2. Small pleural effusions. 3. Cardiomegaly. 4. Cirrhosis of the liver. 5. Mild splenomegaly. 6. Mild right hilar, mediastinal, and periportal lymphadenopathy, likely reactive. 7. Cholelithiasis. No evidence of acute cholecystitis. Reviewed, dictated and finalized at location A. ING AND PRIMING TOOL SETTER IMPRESSION: 1. Mild pulmonary edema. 2. Small pleural effusions. 3. Cardiomegaly. 4. Cirrhosis of the liver. 5. Mild splenomegaly. 6. Mild right hilar, mediastinal, and periportal lymphadenopathy, likely reacti ve. 7. Cholelithiasis. No evidence of acute cholecystitis.
--- NOTE | ~2021-10-30 | CT_ITS ---
EXAMINATION: CT cervical spine wo con DATE: 10/30/2021 09:30 INDICATION: Neck injury. TECHNIQUE: Computed tomography (CT) of the cervical spine was performed without intravenous contrast. Automated exposure control and iterative reconstruction technique were employed. The dose-length pro duct was 681.00 mGy-cm. COMPARISON: None FINDINGS: There is a 4 mm nodule in left thyroid lobe, likely not clinically significant. There is 4 degrees levocurvature of cervical spine. There is 2 mm anterolisthesis of C5 on C6. Vertebral body he ights are normal. There is mildly decreased disc height at C5-C6. The following disc levels are speci fically discussed: C2-C3: There is mild bilateral uncovertebral joint osteoarthritis. There is severe bilateral facet tom int osteoarthritis. There is mild bilateral neural foraminal stenosis. There is no central canal sten osis. C3-C4: There is mild bilateral uncovertebral joint osteoarthritis. There is severe bilateral facet tom int osteoarthritis. There is mild bilateral neural foraminal stenosis. There is mild central canal st enosis. C4-C5: There is no uncovertebral joint osteoarthritis. There is severe bilateral facet joint osteoart hritis. There is mild left neural foraminal stenosis. There is mild central canal stenosis. C5-C6: There is mild left uncovertebral joint osteoarthritis. There is severe bilateral facet joint o steoarthritis. There is mild bilateral neural foraminal stenosis. There is mild central canal stenosi s. C6-C7: There is no uncovertebral joint osteoarthritis. There is mild bilateral facet joint osteoarthr itis. There is no neural foraminal stenosis. There is no central canal stenosis. C7-T1: There is no uncovertebral joint osteoarthritis. There is severe bilateral facet joint osteoart hritis. There is mild bilateral neural foraminal stenosis. There is no central canal stenosis. IMPRESSION: 1. No fracture. 2. Mild cervical spondylosis. Reviewed, dictated and finalized at location A. CARRIER
--- NOTE | ~2021-10-30 | XR_ITS ---
EXAMINATION: XR chest 1V DATE: 10/30/2021 09:35 INDICATION: Fall. TECHNIQUE: A single frontal view of the chest was obtained. COMPARISON: CT abdomen and pelvis 07/24/2020 FINDINGS: There are airspace opacities in right lower lung zone and left mid and lower lung zones. No pleural effusion or pneumothorax. Cardiomegaly is noted. There are changes of aortic valve replaceme nt. Median sternotomy wires are noted. There is a left chest wall pacer with leads in the right atriu m and right ventricle. There is an old healed fracture of right clavicle. IMPRESSION: 1. Airspace opacities in right lower lung zone and left mid and lower lung zones, consistent with ate lectasis versus pneumonia. 2. Cardiomegaly. Reviewed, dictated and finalized at location A. PLANT SUPERVISOR IMPRESSION: 1. Airspace opacities in right lower lung zone and left mid and lower lung zone s, consistent with atelectasis versus pneumonia. 2. Cardiomegaly.
--- NOTE | ~2021-10-30 | XR_ITS ---
MODIFIED ESOPHAGRAM HISTORY: Dysphagia. TECHNIQUE: Modified barium esophagram was performed by speech pathologist under radiologist fluorosco pic guidance. This was recorded on tape. The exam was reviewed on 11/02/2021 14:06 CARPENTER FOREMAN. The DAP for this procedure was 2.4 Gycm2. Fluoroscopy time is 1.45 minutes. FINDINGS: Lateral projection of the cervical spine demonstrates normal alignment. There is prematur e spillage to the vallecula. There is vallecular residue. There is laryngeal penetration, although no definite aspiration is identified.. IMPRESSION: 1: Laryngeal penetration without definite aspiration. 2: Please refer to speech pathologist report for additional detail. Reviewed, dictated and finalized at location A. ENTER FOREMAN
--- NOTE | ~2021-10-30 | CT_ITS ---
EXAMINATION: CT brain wo con DATE: 10/30/2021 09:30 INDICATION: Fall. TECHNIQUE: Computed tomography (CT) of the head was performed without intravenous contrast. The mA wa s adjusted according to patient size. Iterative reconstruction technique was employed. The dose-lengt h product was 681.00 mGy-cm. COMPARISON: Head CT 07/24/2020 FINDINGS: There are old infarcts in the cerebellum bilaterally. There is an old infarct in right occi pital lobe. There are old infarcts in right frontal and parietal lobes. There is an old infarct invol ving left frontoparietal occipital region, posterior left insula, and left thalamus. There are scatte red areas of low attenuation in the cerebral white matter. There is no intracranial hemorrhage, acute infarction, or abnormal intracranial mass lesion. The ventricles are normal in size. The orbits are normal. There is mucosal thickening in the paranasal sinuses. The mastoid air cells are normal. IMPRESSION: 1. Multiple old infarcts in the brain, worsened from 07/24/2020. 2. Moderate nonspecific cerebral white matter disease, which likely represents chronic small vessel i schemic disease. Reviewed, dictated and finalized at location A. CE MACHINES SALES REPRESENTATIVE IMPRESSION: 1. Multiple old infarcts in the brain, worsened from 07/24/2020. 2. Moderate nonspecific cerebral white matter disease, which likely represents chronic small vessel ischemic disease.
--- NOTE | 2021-10-30 07:47 | ED.GENADULT ---
HPI - General Adult General Chief complaint: Unspecified Stated complaint: pulled out gallbladder drain tube Time Seen by Provider: 10/30/21 07:45 Source: RN notes reviewed and other (residential staff after talking to them by the phone.) History of Present Illness HPI narrative: Patient brought to the emergency room by ambulance because found laying down next to his bed at 2 AM today. No witness for a fall. Patient is asymptomatic. Patient baseline is awake and oriented to himself only and sometimes his age. Patient is DNR. Patient is status post cholecystectomy at the [facility] July 2021. Transfer to a [facility] on August 28, 2021 and is scheduled for follow-up for his surgery tomorrow at [facility]. The nurse is telling me that the patient pulled his right upper quadrant drain tubes in the way going down to the floor. Later I was told by the surgeon at the [facility] that the patient have chronic gallbladder drain at the right upper quadrant for over 1 year. And patient still have his gallbladder. And was in the hospital July 2021 for feeding tube placement Related Data Home Medications Medication Instructions Recorded Confirmed apixaban 5 mg PO BID 07/24/20 07/24/20 aspirin 81 mg PO DAILY 07/24/20 07/24/20 budesonide-formoterol 2 puff INHALATION BID 07/24/20 07/24/20 furosemide 40 mg PO DAILY 07/24/20 07/24/20 gabapentin 500 mg PO TID 07/24/20 07/24/20 glipizide 10 mg PO BID 07/24/20 07/24/20 isosorbide mononitrate 15 mg PO DAILY 07/24/20 07/24/20 lisinopril 10 mg PO DAILY 07/24/20 07/24/20 metformin 1,000 mg PO DAILY 07/24/20 07/24/20 metoprolol tartrate 50 mg PO Q12H 07/24/20 07/24/20 oxycodone-acetaminophen 1 tablet PO Q6H PRN 07/24/20 07/24/20 pantoprazole 40 mg PO QAM 07/24/20 07/24/20 prednisone 20 mg PO DAILY 07/24/20 07/24/20 Allergies Allergy/AdvReac Type Severity Reaction Status Date / Time protamine Allergy Anaphylactic Verified 10/30/21 06:02 Shock Review of Systems Review of Systems: ROS unobtainable: Yes unobtainable due to mental status PMFSH Past Medical History Medical History Hypertension Obesity Surgical History Surgical History Heart valve replaced History of orthopedic surgery Social History Social History Smoking status: Former smoker Alcohol intake: never Substance use: never Gender identity (if verbalized by the patient): Male Spiritual care concerns: No Exam Narrative: General appearance: Well-developed, well-nourished Skin: Normal color Head: Normocephalic, nontraumatic Eyes: Clear conjunctiva ENT: Dry oral cavity Neck: Supple, nontender Chest and respiratory: Airway patent, no respiratory distress, no accessory muscle use Heart: Regular rate/rhythm Abdomen: Soft, nontender, no organomegaly, quiet bowel sounds, feeding tube in place, dry blood/scab at the right upper quadrant Vascular: Normal peripheral pulses, normal capillary refill. Musculoskeletal: Normal range of motion, nontender back Neurologic: Alert and oriented ?3, LEGAL FINANCIAL SPECIALIST is normal as tested, no gross motor deficit Course Course Emergency Course: Stable Vital Signs Vital signs: Vital Signs Temperature 36.1 C L 10/30/21 03:18 Pulse Rate 95 10/30/21 03:18 Respiratory Rate 18 10/30/21 03:18 Blood Pressure 127/60 10/30/21 03:18 Pulse Oximetry 97 10/30/21 03:18 Temperature 36.1 C L 10/30/21 03:18 Pulse Rate 60 10/30/21 11:49 Respiratory Rate 15 10/30/21 11:49 Blood Pressure 105/78 10/30/21 11:49 Pulse Oximetry
--- NOTE | 2021-10-30 08:45 | ECG_ITS ---
Measurements Intervals [place] Rate: 59 P: KS: 0 QRS: -49 QRSD: 179 T: 130 QT: 487 QTc: 486 Interpretive Statements ELECTRONIC VENTRICULAR PACEMAKERW WITH INHIBITION ST-T WAVE ABNORMALITY IN ANTEROLATERAL LEADS- CONSIDER ISCHEMIA BASELINE ARTIFACT- I, II, III, V1-V3 NO FURTHER INTERPRETATION IS POSSIBLE ABNORMAL ECG Electronically Signed On 10-30-2021 11:15:28 BUTTER PRODUCTION SUPERVISOR by Dev Parks D.O.
[2021-10-30] MEDS: SODIUM CHLORIDE 0.9% IV 1,000 ML 999 ML IV CONT ×2 (10:30→11:50)
--- NOTE | 2021-10-30 10:38 | PC.NURSE ---
This nurse instructed the pct in ER to get urine via straight catheter. Catheter unsuccessful. This nurse attempted and was unable to get urine via straight catheter due to patient resistance and inability to move catheter successfully into his bladder. made aware.
[2021-10-30 10:50] LABS: Basophils Absolute Auto 0.1 K/mm3 (0.0-0.1); Basophils Percent Auto 0.5 % (0.2-1.2); Eosinophils Absolute Auto 0.1 K/mm3 (0-0.3); Eosinophils Percent Auto 0.6 % (0-4.4); Hematocrit 38.7 % (42.0-52.0); Hemoglobin 11.6 g/dL (14.0-18.0); Immature Granulocyte Absolute 0.04 K/mm3 (0.00-0.031); Immature Granulocyte Percent A 0.4 % (0-0.5); Lymphocytes Absolute Auto 0.99 K/mm3 (0.9-3.2); Lymphocytes Percent Auto 10.3 % (18.3-44.2); Mean Corpuscular Hemoglobin 25.8 pg (26-34); Mean Platelet Volume 9.5 fl (7.4-10.4); Monocytes Absolute Auto 0.8 K/mm3 (0.1-0.6); Neutrophils Absolute Auto 7.7 K/mm3 (1.3-6.7); Neutrophils Percent Auto 80.2 % (45.5-73.1); Platelet Count Result 323 k/mm3 (150-375); White Blood Count 9.6 K/mm3 (4.5-10.0)
[2021-10-30 11:02] LABS: Alanine Aminotransferase 10 U/L (4-50); Albumin Level 3.6 g/dL (3.5-5.1); Alkaline Phosphatase 87 U/L (38-126); Anion Gap 8 mmol/L (8-16); Aspartate Amino Transferase 26 U/L (17-59); Bilirubin,Total 1.1 mg/dL (0.2-1.3); Blood Urea Nitrogen 11 mg/dL (9-20); Calcium 8.8 mg/dL (8.4-10.2); Carbon Dioxide 33 mmol/L (22-30); Chloride 98 mmol/L (98-107); Creatine Kinase 48 U/L (55-170); Estimated CRCL calculation 47 ml/min; Estimated Glomerular Filt Rate 50; Glucose 124 mg/dL (65-110); Sodium 139 mmol/L (137-145)
[2021-10-30 11:17] LABS: Lactic Acid Reflex 1.6 mmol/L (0.7-2.1)
[2021-10-30] MEDS: POTASSIUM CHLORIDE 20 MEQ PACKET (FOR LIQUID) 40 MEQ PO (11:50)
--- NOTE | 2021-10-30 13:00 | PC.NURSE ---
This nurse placed a condom catheter on the pt with provider permission due to inability to catheterized.
[2021-10-30 14:46] LABS: Add Urine Microscopic? YES; Appearance Urine Cloudy (Clear); Bacteria Urine Trace /hpf; Bilirubin Urine Negative (Negative); Blood Urine 1+ (Negative); Color Urine Amber (Yellow); Glucose Urine UA Negative (Negative); Ketones Urine Negative (Negative); Leukocyte Esterase Ur 1+ LEU/UL (Negative); Mucus Urine Rare /lpf; Nitrate Urine Negative (Negative); Protein Urine 2+ mg/dL (Negative); RBC Urine >75 /hpf (0-2); Specific Grav Ur 1.018 (1.001-1.035); Squamous Epithelial Cell Urine Rare /hpf (Few); WBC Urine 16-20 /hpf
[2021-10-30 15:08] LABS: EDCOVIDSCREEN Negative (Negative)
--- NOTE | 2021-10-30 16:00 | PM.IMHP ---
H&P: HPI History of Present Illness Date/Time: 10/30/21 16:00 Chief Complaint: Dislodged cholecystostomy tube. Narrative: This is a 71-year-old male with history of stroke, paroxysmal atrial fibrillation no longer on anticoagulation due to history of occult GI bleeding and anemia requiring blood transfusions, hypertension, dyslipidemia, coronary artery disease, diabetes, GERD, and several other comorbidities who presented to the emergency department earlier today via EMS from [facility] for evaluation after he was found to have a dislodged cholecystostomy tube. The patient is a poor historian and cannot provide me with any significant history and as such a majority of the following is obtained via a review of his electronic medical records as well as discussions with his , Brittni, via phone. Brittni received a call from staff at [facility] at around 02:00 with reports that the patient must have rolled out of bed on the floor as they found him lying on the floor, at which time they noticed that his cholecystostomy tube had become dislodged as well. Apparently he has had a cholecystostomy tube in place since at least February 2021, and it has been replaced several times since then. It is my understanding that he has quite a bit of abdominal pain if it is not in place and he has been deemed to not be a surgical candidate for cholecystectomy. He is under the care of doctors at [facility] in [place] and reportedly has a follow-up appointment with them tomorrow. Unfortunately he was brought to this facility and there are no beds at the [facility] for transfer and he is being admitted in this setting for consultation with our surgeons here. At the time my evaluation the patient has no complaints and he specifically denies fever, chills, sweats, headache, neck ache, cold and flu symptoms, chest pain, shortness of breath, nausea, vomiting, and diarrhea. Review of Systems Review of Systems: A review of systems was attempted but limited as he does suffer from memory loss since his stroke. According the patient's he also has right-sided weakness, dysphagia, and expressive aphasia from his stroke as well. He has lost about 60 lb since that time and he has a G-tube in place for supplements if he is unable to eat a solid 3 meals a day. tells me that he is on a stage II mechanical soft diet with nectar thickened liquids. He does have a history of aspiration pneumonia in the fall of 2020. She has not noticed him coughing or choking with eating recently. He has not had any recent illnesses. He has a pressure ulcer on his coccyx that is being monitored. She does not believe that he has been using his CPAP at night, mainly just on nasal cannula. [facility] Past Medical History Medical History (Updated 10/30/21 @ 19:26 by Ellen Bland PA-C) Anemia Aspiration pneumonia (07/2021) Cerebrovascular accident (04/2021) Resultant right side weakness, memory loss, dysphagia, and expressive aphasia. Chronic obstructive pulmonary disease Chronic respiratory failure with hypoxia, on home oxygen therapy Uses mostly at nighttime. Cirrhosis Noted on CT 10/30/2021, not previously known to the patient or his . Congestive heart disease Coronary artery disease Dysphagia Hyperlipidemia Hypertension Myocardial infarction (1999) Obstructive sleep apnea Paroxysmal atrial fibrillation Type 2 diabetes mellitus Surgical History Surgical History (Updated 10/30/21 @ 19:25 by Ellen Bland PA-C) History of cardiac pacemaker History of four vessel coronary artery bypass graft History of gastrostomy tube placement History of orthopedic surgery History of repair of right rotator cuff History of transcatheter aortic valve replacement (TAVR) Status post excision of lipoma Removed from back. Family History Family History Father Carcinoma of colon Mother , Age 55. Acute myocardial infa
[2021-10-30] MEDS: SODIUM CHLORIDE 0.9% IV 1,000 ML 125 ML IV CONT (16:08)
--- NOTE | 2021-10-30 16:35 | PC.NURSE ---
This nurse attempted to call to give report to the nurse on but was told I would get a call back after the nurse left one of her patient rooms. Will call back after 15 minutes if there is no call.
--- NOTE | 2021-10-30 18:21 | ADMGEN ---
This patient, Dong Chacon, was admitted to Medical Room 344-01. Patient/family oriented to hospital policies and general routines including ID bracelet, bed and alarms, visiting hours, pain management, procedures, bathroom and other care routines, personal items, smoking policy, room service/diet, and visiting hours. Information on how to activate the Rapid Response Team has been discussed. Patient/Family are encouraged to report perceived risks to care and to ask questions if they do not understand what they are told or what they should do.
[2021-10-30 21:45] LABS: Glucose Point of Care 98 mg/dl (65-105)
[2021-10-30 21:56] LABS: Hemoglobin A1C 5.7 % (<5.7)
[2021-10-31] VITALS (9 sets, daily range): BP systolic 110–166; BP diastolic 42–64; PULSE 59–78; RESP 14–16; TEMP 36.2–36.5; O2SAT 90–98; BMI 31.4
[2021-10-31 05:59] LABS: Glucose Point of Care 129 mg/dl (65-105)
[2021-10-31 06:00] LABS: Hematocrit 33.3 % (42.0-52.0); Hemoglobin 9.9 g/dL (14.0-18.0); Mean Corpuscular HGB Conc 29.7 g/dl (32-36); Mean Corpuscular Hemoglobin 26.1 pg (26-34); Mean Corpuscular Volume 87.9 fl (80-100); Mean Platelet Volume 9.6 fl (7.4-10.4); Platelet Count Result 267 k/mm3 (150-375); Red Blood Count 3.79 M/mm3 (4.6-6.20); White Blood Count 7.4 K/mm3 (4.5-10.0)
[2021-10-31 06:23] LABS: Anion Gap 7 mmol/L (8-16); Blood Urea Nitrogen 10 mg/dL (9-20); Calcium 7.8 mg/dL (8.4-10.2); Carbon Dioxide 29 mmol/L (22-30); Chloride 103 mmol/L (98-107); Estimated CRCL calculation 54 ml/min; Estimated Glomerular Filt Rate 60; Glucose 116 mg/dL (65-110); Magnesium 1.4 mg/dL (1.6-2.3); Potassium 2.8 mmol/L (3.4-5.0); Sodium 139 mmol/L (137-145)
[2021-10-31] MEDS: POTASSIUM CHLORIDE INJ 40 MEQ in SODIUM CHLORIDE 0.9% IV 500 ML 130 MEQ IVPB (06:39)
[2021-10-31] MEDS: FLUTICASONE/SALMETEROL 115-21 MCG INHALER 1 PUFF 2 PUFF INHALATION (07:49)
--- NOTE | 2021-10-31 08:08 | P.PN_ITS ---
Progress Note: A&P Assessment and Plan (1) Cholecystostomy tube dysfunction: Code(s): T85.518A - Breakdown (mechanical) of other gastrointestinal prosthetic devices, implants and grafts, initial encounter Status: Acute Assessment and Plan: * Cholecystostomy tube became dislodged s/p fall * Surgery Dr. Maradiaga has been consulted and his input is appreciated. Thank you for the care this patient * Imaging indicates Cholelithiasis. No evidence of acute cholecystitis. (2) Hypokalemia: Code(s): E87.6 - Hypokalemia Status: Acute Assessment and Plan: * Potassium 3.0>2.8 * Supplements given * CMP in a.m. (3) Renal insufficiency: Code(s): N28.9 - Disorder of kidney and ureter, unspecified Status: Acute Assessment and Plan: * Cr 1.40>1.20 improved * received 2 L of normal saline in the emergency department * Avoid nephrotoxic agent * Will renal dose all medication * (4) Cirrhosis: Code(s): K74.60 - Unspecified cirrhosis of liver Status: Acute Assessment and Plan: * CT of the chest abdomen and pelvis indicates cirrhosis of the liver * Avoid hepatotoxic agents (5) Obstructive sleep apnea: Code(s): G47.33 - Obstructive sleep apnea (adult) (pediatric) Status: Acute Assessment and Plan: * Continue supplementary oxygen at night. (6) Type 2 diabetes mellitus: Code(s): E11.9 - Type 2 diabetes mellitus without complications Status: Acute Assessment and Plan: * Blood sugar 116 * Continue Accu-Cheks with sliding scale and hypoglycemic protocol * A1c 5.7 (7) Chronic respiratory failure with hypoxia, on home oxygen therapy: Code(s): J96.11 - Chronic respiratory failure with hypoxia; Z99.81 - Dependence on supplemental oxygen Status: Acute Assessment and Plan: * According to , he is on p.r.n. oxygen, mainly at nighttime. (8) Hypertension: Code(s): I10 - Essential (primary) hypertension Status: Acute Assessment and Plan: * Blood pressure stable * Continue metoprolol 25 mg b.i.d. * Vital signs * Will adjust medications (9) Chronic obstructive pulmonary disease: Code(s): J44.9 - Chronic obstructive pulmonary disease, unspecified Status: Acute Assessment and Plan: * Stable * Started albuterol p.r.n. and Symbicort * Continue supplementary oxygen as needed (10) Congestive heart disease: Code(s): I50.9 - Heart failure, unspecified Status: Acute Assessment and Plan: * Mild pulmonary edema noted on imaging. * Continue Lasix 80 mg daily * Daily weights reviewed * Intake and output reviewed * bnp in the am (11) Paroxysmal atrial fibrillation: Code(s): I48.0 - Paroxysmal atrial fibrillation Status: Acute Assessment and Plan: * Status post pacemaker insertion. * Admission EKG indicates pace with a heart rate of 59 * Not on long-term anticoagulation due to history of occult GI blood loss and anemia. (12) Dysphagia: Code(s): R13.10 - Dysphagia, unspecified Status: Acute Assessment and Plan: * Started mechanical soft food and nectar thickened liquids. * give Jevity 1.5, 1 carton at 20:00, 00:00, and 04:00 if he does not eat 3 s olid meals. * Communicated to nursing staff and dietitian. (13) Electrolyte imbalance: Code(s): E87.8 - Other disorders of electrol
--- NOTE | 2021-10-31 08:08 | WPDPN ---
Progress Note: A&P Assessment and Plan (1) Cholecystostomy tube dysfunction: Code(s): T85.518A - Breakdown (mechanical) of other gastrointestinal prosthetic devices, implants and grafts, initial encounter Status: Acute Assessment and Plan: Cholecystostomy tube became dislodged s/p fall Surgery Dr. Maradiaga has been consulted and his input is appreciated. Thank you for the care this patient Imaging indicates Cholelithiasis. No evidence of acute cholecystitis. (2) Hypokalemia: Code(s): E87.6 - Hypokalemia Status: Acute Assessment and Plan: Potassium 3.0>2.8 Supplements given CMP in a.m. (3) Renal insufficiency: Code(s): N28.9 - Disorder of kidney and ureter, unspecified Status: Acute Assessment and Plan: Cr 1.40>1.20 improved received 2 L of normal saline in the emergency department Avoid nephrotoxic agent Will renal dose all medication (4) Cirrhosis: Code(s): K74.60 - Unspecified cirrhosis of liver Status: Acute Assessment and Plan: CT of the chest abdomen and pelvis indicates cirrhosis of the liver Avoid hepatotoxic agents (5) Obstructive sleep apnea: Code(s): G47.33 - Obstructive sleep apnea (adult) (pediatric) Status: Acute Assessment and Plan: Continue supplementary oxygen at night. (6) Type 2 diabetes mellitus: Code(s): E11.9 - Type 2 diabetes mellitus without complications Status: Acute Assessment and Plan: Blood sugar 116 Continue Accu-Cheks with sliding scale and hypoglycemic protocol A1c 5.7 (7) Chronic respiratory failure with hypoxia, on home oxygen therapy: Code(s): J96.11 - Chronic respiratory failure with hypoxia; Z99.81 - Dependence on supplemental oxygen Status: Acute Assessment and Plan: According to , he is on p.r.n. oxygen, mainly at nighttime. (8) Hypertension: Code(s): I10 - Essential (primary) hypertension Status: Acute Assessment and Plan: Blood pressure stable Continue metoprolol 25 mg b.i.d. Vital signs Will adjust medications (9) Chronic obstructive pulmonary disease: Code(s): J44.9 - Chronic obstructive pulmonary disease, unspecified Status: Acute Assessment and Plan: Stable Started albuterol p.r.n. and Symbicort Continue supplementary oxygen as needed (10) Congestive heart disease: Code(s): I50.9 - Heart failure, unspecified Status: Acute Assessment and Plan: Mild pulmonary edema noted on imaging. Continue Lasix 80 mg daily Daily weights reviewed Intake and output reviewed bnp in the am (11) Paroxysmal atrial fibrillation: Code(s): I48.0 - Paroxysmal atrial fibrillation Status: Acute Assessment and Plan: Status post pacemaker insertion. Admission EKG indicates pace with a heart rate of 59 Not on long-term anticoagulation due to history of occult GI blood loss and anemia. (12) Dysphagia: Code(s): R13.10 - Dysphagia, unspecified Status: Acute Assessment and Plan: Started mechanical soft food and nectar thickened liquids. give Jevity 1.5, 1 carton at 20:00, 00:00, and 04:00 if he does not eat 3 solid meals. Communicated to nursing staff and dietitian. (13) Electrolyte imbalance: Code(s): E87.8 - Other disorders of electrolyte and fluid balance, not elsewhere classified Status: Acute Assessment and Plan: mag 1.4 Supplement given Mag level in the a.m. (14) Sacral wound: Code(s): S31.000A - Unspecified open wound of lower back and pelvis without penetration into retroperitoneum, initial encounter Status: Acute Assessment and Plan: ulcer to sacral area wound care consulted (15) UTI (urinary tract infection): Code(s): N39.0 - Urinary tract infection, site not specified Status: Acute Assessment and Sis
[2021-10-31] MEDS: METOPROLOL TARTRATE 25 MG TABLET FEED TUBE ×2 (09:33→21:36)
[2021-10-31] MEDS: ATORVASTATIN 40 MG TABLET 80 MG FEED TUBE (09:34)
[2021-10-31] MEDS: FUROSEMIDE 20 MG TABLET FEED TUBE (09:34)
[2021-10-31] MEDS: CHLORHEXIDINE GLUCONATE 0.12% ORAL RINSE 473 ML BTL (*BKC) SWISH/SPIT ×2 (09:34→17:41)
[2021-10-31] MEDS: PANTOPRAZOLE 40 MG TABLET PO (09:36)
--- NOTE | 2021-10-31 09:37 | PC.NURSE ---
call to pharm for missing PO meds
--- NOTE | 2021-10-31 10:46 | PM.CNGS ---
Assessment and Plan Assessment and plan (1) Cholecystostomy tube dysfunction: Code(s): T85.518A - Breakdown (mechanical) of other gastrointestinal prosthetic devices, implants and grafts, initial encounter Status: Acute Assessment and Plan: exam benign, labs completely within normal limits including LFTs, WBC, CT reviewed c cholelithiasis but no evidence of acute cholecystitis, will try low fat diet at this point History of Present Illness Consult details Consult date: 10/31/21 Reason for consult: abdominal pain Requesting physician: Cecy Kc MD Narrative: The patient is a 71-year-old male with multiple medical issues that presented to the emergency department from an extended care facility with a dislodged cholecystostomy tube. Of note, the patient is a very poor restored in all history is obtained via the chart. The patient apparently has had multiple attacks of acute cholecystitis and given his comorbidities has been treated with percutaneous cholecystostomy tube placement. The patient has had multiple tubes placed since at least February of 2021. The patient currently does not have any complaints of abdominal pain. Review of Systems Review of Systems: ROS unobtainable: Yes unobtainable due to mental status PMFSH Past Medical History Medical History Anemia Aspiration pneumonia (07/2021) Cerebrovascular accident (04/2021) Resultant right side weakness, memory loss, dysphagia, and expressive aphasia. Chronic obstructive pulmonary disease Chronic respiratory failure with hypoxia, on home oxygen therapy Uses mostly at nighttime. Cirrhosis Noted on CT 10/30/2021, not previously known to the patient or his . Congestive heart disease Coronary artery disease Dysphagia Hyperlipidemia Hypertension Myocardial infarction (1999) Obstructive sleep apnea Paroxysmal atrial fibrillation Type 2 diabetes mellitus Surgical History Surgical History History of cardiac pacemaker History of four vessel coronary artery bypass graft History of gastrostomy tube placement History of orthopedic surgery History of repair of right rotator cuff History of transcatheter aortic valve replacement (TAVR) Status post excision of lipoma Removed from back. Family History Family History Father Carcinoma of colon Mother , Age 55. Acute myocardial infarction Sibling Kidney failure Social History Social History Social History: Surrogate decision maker: Nasrin Chacon, spouse. Code status: Do not resuscitate. Smoking status: Former smoker Alcohol intake: never Substance use: never Additional living arrangements comments: At [facility] since 08/2021. Prior to that he was living with his . 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 Was in the [employer] in the early 60s. Meds Home Medications and Allergies Home Medications Medication Instructions Recorded Confirmed Type budesonide-formoterol 2 puff INHALATION BID 07/24/20 10/30/21 History pantoprazole [Protonix] 40 mg PO QAM 07/24/20 10/30/21 History atorvastatin [Lipitor] 80 mg FEEDING TUBE DAILY 10/30/21 10/30/21 History chlorhexidine gluconate [Paroex 5 ml MUCOUS MEMBRANE BID 10/30/21 10/30/21 History Oral Rinse] collagenase clostridium histo. 2 applic TOPICAL DAILY 10/30/21 10/30/21 History [Santyl] furosemide [Lasix] 20 mg FEEDING TUBE DAILY 10/30/21 10/30/21 History metoprolol tartrate 25 mg FEEDING TUBE BID 10/30/21 10/30/21 History polyethylene glycol 3350 [Miralax] 17 g FEEDING TUBE DAILY 10/30/21 10/30/21 History quetiapine 50 mg FEEDING TUBE DAILY 10/30/21 10/30/21 History tiotropium bromide [Spiriva 2.5 mcg INHALATION DAILY 10/30/21 10/30/21 History
[2021-10-31] MEDS: MAGNESIUM SULF 2 GM/WATER 50ML 2 GM/50 ML BAG IVPB (10:54)
[2021-10-31 16:27] LABS: Glucose Point of Care 127 mg/dl (65-105)
[2021-10-31] MEDS: COLLAGENASE OINT 30 GM TUBE 1 APPLIC TOPICAL (17:41)
[2021-10-31] MEDS: FLUTICASONE/SALMETEROL 45-21 MCG INHALER 1 PUFF 2 PUFF INHALATION (21:21)
[2021-10-31 22:00] LABS: Glucose Point of Care 105 mg/dl (65-105)
[2021-11-01] VITALS (7 sets, daily range): BP systolic 137–141; BP diastolic 36–63; PULSE 59–69; RESP 14–18; TEMP 35.9–36.2; O2SAT 93–98
[2021-11-01 06:39] LABS: Hematocrit 31.2 % (42.0-52.0); Hemoglobin 9.5 g/dL (14.0-18.0); Mean Corpuscular HGB Conc 30.4 g/dl (32-36); Mean Corpuscular Hemoglobin 25.7 pg (26-34); Mean Corpuscular Volume 84.3 fl (80-100); Mean Platelet Volume 9.7 fl (7.4-10.4); Platelet Count Result 303 k/mm3 (150-375); Red Cell Distribution Width 18.7 % (11.5-14.5); White Blood Count 9.8 K/mm3 (4.5-10.0)
[2021-11-01 06:51] LABS: Alanine Aminotransferase 10 U/L (4-50); Albumin Level 3.3 g/dL (3.5-5.1); Alkaline Phosphatase 74 U/L (38-126); Anion Gap 6 mmol/L (8-16); Aspartate Amino Transferase 20 U/L (17-59); Bilirubin,Total 0.5 mg/dL (0.2-1.3); Blood Urea Nitrogen 9 mg/dL (9-20); Calcium 8.1 mg/dL (8.4-10.2); Carbon Dioxide 29 mmol/L (22-30); Chloride 103 mmol/L (98-107); Estimated CRCL calculation 66 ml/min; Estimated Glomerular Filt Rate > 60; Glucose 115 mg/dL (65-110); Magnesium 1.7 mg/dL (1.6-2.3); Sodium 138 mmol/L (137-145)
[2021-11-01 06:58] LABS: NT Pro B Type Natriuretic Pept 10900 pg/mL (5-100)
--- NOTE | 2021-11-01 08:03 | P.PN_ITS ---
Progress Note: A&P Assessment and Plan (1) Cholecystostomy tube dysfunction: Code(s): T85.518A - Breakdown (mechanical) of other gastrointestinal prosthetic devices, implants and grafts, initial encounter Status: Acute Assessment and Plan: * Cholecystostomy tube became dislodged s/p fall * Surgery Dr. Maradiaga has been consulted notes no evidence of acute cholecystitis. Will try low fat diet. * Imaging indicates Cholelithiasis. No evidence of acute cholecystitis. (2) Hypokalemia: Code(s): E87.6 - Hypokalemia Status: Acute Assessment and Plan: * Potassium 3.0>2.8>3.0 * Supplements given * CMP in a.m. (3) Renal insufficiency: Code(s): N28.9 - Disorder of kidney and ureter, unspecified Status: Acute Assessment and Plan: * Cr 1.40>1.20>1.00 resolved * received 2 L of normal saline in the emergency department * Avoid nephrotoxic agent * Will renal dose all medication * (4) Cirrhosis: Code(s): K74.60 - Unspecified cirrhosis of liver Status: Acute Assessment and Plan: * CT of the chest abdomen and pelvis indicates cirrhosis of the liver * Avoid hepatotoxic agents (5) Obstructive sleep apnea: Code(s): G47.33 - Obstructive sleep apnea (adult) (pediatric) Status: Acute Assessment and Plan: * Continue supplementary oxygen at night. (6) Type 2 diabetes mellitus: Code(s): E11.9 - Type 2 diabetes mellitus without complications Status: Acute Assessment and Plan: * Blood sugar 115 * Continue Accu-Cheks with sliding scale and hypoglycemic protocol * A1c 5.7 (7) Chronic respiratory failure with hypoxia, on home oxygen therapy: Code(s): J96.11 - Chronic respiratory failure with hypoxia; Z99.81 - Dependence on supplemental oxygen Status: Acute Assessment and Plan: * According to , he is on p.r.n. oxygen, mainly at nighttime. (8) Hypertension: Code(s): I10 - Essential (primary) hypertension Status: Acute Assessment and Plan: * Blood pressure stable * Continue metoprolol 25 mg b.i.d. * Vital signs * Will adjust medications (9) Chronic obstructive pulmonary disease: Code(s): J44.9 - Chronic obstructive pulmonary disease, unspecified Status: Acute Assessment and Plan: * Stable * Started albuterol p.r.n. and Symbicort * Continue supplementary oxygen as needed (10) Congestive heart disease: Code(s): I50.9 - Heart failure, unspecified Status: Acute Assessment and Plan: * Mild pulmonary edema noted on imaging. * Changed lasix to 80mg daily instead of 20 mg daily * Daily weights reviewed * Intake and output reviewed * bnp in the am * bnp 98210 * repeat cxr indicates mild pulmonary edema (11) Paroxysmal atrial fibrillation: Code(s): I48.0 - Paroxysmal atrial fibrillation Status: Acute Assessment and Plan: * Status post pacemaker insertion. * Admission EKG indicates pace with a heart rate of 59 * Not on long-term anticoagulation due to history of occult GI blood loss and anemia. (12) Dysphagia: Code(s): R13.10 - Dysphagia, unspecified Status: Acute Assessment and Plan: * Started mechanical soft food and nectar thickened liquids. * give Jevity 1.5, 1 carton at 20:00, 00:00, and 04:00 if he does not eat 3 solid meals. * Communicated to nursing staff and dietitian. * S
--- NOTE | 2021-11-01 08:03 | WPDPN ---
Progress Note: A&P Assessment and Plan (1) Cholecystostomy tube dysfunction: Code(s): T85.518A - Breakdown (mechanical) of other gastrointestinal prosthetic devices, implants and grafts, initial encounter Status: Acute Assessment and Plan: Cholecystostomy tube became dislodged s/p fall Surgery Dr. Maradiaga has been consulted notes no evidence of acute cholecystitis. Will try low fat diet. Imaging indicates Cholelithiasis. No evidence of acute cholecystitis. (2) Hypokalemia: Code(s): E87.6 - Hypokalemia Status: Acute Assessment and Plan: Potassium 3.0>2.8>3.0 Supplements given CMP in a.m. (3) Renal insufficiency: Code(s): N28.9 - Disorder of kidney and ureter, unspecified Status: Acute Assessment and Plan: Cr 1.40>1.20>1.00 resolved received 2 L of normal saline in the emergency department Avoid nephrotoxic agent Will renal dose all medication (4) Cirrhosis: Code(s): K74.60 - Unspecified cirrhosis of liver Status: Acute Assessment and Plan: CT of the chest abdomen and pelvis indicates cirrhosis of the liver Avoid hepatotoxic agents (5) Obstructive sleep apnea: Code(s): G47.33 - Obstructive sleep apnea (adult) (pediatric) Status: Acute Assessment and Plan: Continue supplementary oxygen at night. (6) Type 2 diabetes mellitus: Code(s): E11.9 - Type 2 diabetes mellitus without complications Status: Acute Assessment and Plan: Blood sugar 115 Continue Accu-Cheks with sliding scale and hypoglycemic protocol A1c 5.7 (7) Chronic respiratory failure with hypoxia, on home oxygen therapy: Code(s): J96.11 - Chronic respiratory failure with hypoxia; Z99.81 - Dependence on supplemental oxygen Status: Acute Assessment and Plan: According to , he is on p.r.n. oxygen, mainly at nighttime. (8) Hypertension: Code(s): I10 - Essential (primary) hypertension Status: Acute Assessment and Plan: Blood pressure stable Continue metoprolol 25 mg b.i.d. Vital signs Will adjust medications (9) Chronic obstructive pulmonary disease: Code(s): J44.9 - Chronic obstructive pulmonary disease, unspecified Status: Acute Assessment and Plan: Stable Started albuterol p.r.n. and Symbicort Continue supplementary oxygen as needed (10) Congestive heart disease: Code(s): I50.9 - Heart failure, unspecified Status: Acute Assessment and Plan: Mild pulmonary edema noted on imaging. Changed lasix to 80mg daily instead of 20 mg daily Daily weights reviewed Intake and output reviewed bnp in the am bnp 17961 repeat cxr indicates mild pulmonary edema (11) Paroxysmal atrial fibrillation: Code(s): I48.0 - Paroxysmal atrial fibrillation Status: Acute Assessment and Plan: Status post pacemaker insertion. Admission EKG indicates pace with a heart rate of 59 Not on long-term anticoagulation due to history of occult GI blood loss and anemia. (12) Dysphagia: Code(s): R13.10 - Dysphagia, unspecified Status: Acute Assessment and Plan: Started mechanical soft food and nectar thickened liquids. give Jevity 1.5, 1 carton at 20:00, 00:00, and 04:00 if he does not eat 3 solid meals. Communicated to nursing staff and dietitian. Speech therapy consult placed (13) Electrolyte imbalance: Code(s): E87.8 - Other disorders of electrolyte and fluid balance, not elsewhere classified Status: Acute Assessment and Plan: mag 1.4>1.7 resolved Supplement given Mag level in the a.m. (14) Sacral wound: Code(s): S31.000A - Unspecified open wound of lower back and pelvis without penetration into retroperitoneum, initial encounter Status: Acute Assessment and Plan: ulcer to sacral area wound care consulted (15) UTI (urinary tr
[2021-11-01 08:43] LABS: Glucose Point of Care 114 mg/dl (65-105)
[2021-11-01] MEDS: ATORVASTATIN 40 MG TABLET 80 MG FEED TUBE (08:43)
[2021-11-01] MEDS: PANTOPRAZOLE 40 MG TABLET PO (08:43)
[2021-11-01] MEDS: METOPROLOL TARTRATE 25 MG TABLET FEED TUBE ×2 (08:44→21:03)
[2021-11-01] MEDS: COLLAGENASE OINT 30 GM TUBE 1 APPLIC TOPICAL (08:50)
[2021-11-01] MEDS: CHLORHEXIDINE GLUCONATE 0.12% ORAL RINSE 473 ML BTL (*BKC) SWISH/SPIT ×2 (08:50→17:44)
--- NOTE | 2021-11-01 09:32 | PM.PNGS ---
Progress Note: A&P Assessment and Plan (1) Cholecystostomy tube dysfunction: Code(s): T85.518A - Breakdown (mechanical) of other gastrointestinal prosthetic devices, implants and grafts, initial encounter Status: Acute Assessment and Plan: exam cont to be benign, labs WNL, jovany low fat diet, no need for intervention at this time, recommend cont low fat diet, will sign off, call c ?s, issues Subjective Subjective Date/Time Seen: 11/01/21 09:32 feels good, no abd pain, jovany low fat diet Review of Systems Review of Systems: All systems reviewed & are unremarkable except as noted in HPI and below Exam Const: General: cooperative, comfortable, no acute distress and ill appearing Orientation/consciousness: patient oriented x3 Resp: Auscultation: clear to auscultation bilaterally Cardio: Rate: regular rate Rhythm: regular rhythm GI: Inspection: normal to inspection and non-distended GI Palp: Yes Soft to palpation, No Tenderness to palpation present (GI), No Guarding due to palpation present (GI) and No Rigid due to palpation Objective Data Vital Signs Vital Signs: Vital Signs - 24 hr 10/31/21 09:33 10/31/21 14:00 10/31/21 21:23 Temperature 36.5 C Pulse Rate 78 59 L 69 Respiratory Rate 16 Blood Pressure 166/57 H Pulse Oximetry 98 90 10/31/21 21:35 10/31/21 21:36 10/31/21 21:37 Temperature 36.5 C Pulse Rate 68 68 Respiratory Rate 14 Blood Pressure 135/64 Pulse Oximetry 92 92 11/01/21 06:00 11/01/21 08:44 Temperature 35.9 C L Pulse Rate 66 63 Respiratory Rate 14 Blood Pressure 141/63 H Pulse Oximetry 98 Intake/Output Intake/Output: Intake & Output 10/29/21 10/30/21 10/31/21 11/01/21 23:59 23:59 23:59 23:59 Intake Total 1999 6590 404 Output Total 594 273 Balance 1999 1091 715 Meds/Results Medications: Active Medications Generic Name Dose Route Start Last Admin Trade Name Freq PRN Reason Stop Dose Admin Albuterol 2 puff 10/31/21 08:21 Albuterol Sulfate (*Sp) Aerosol 1 Puff INHALATION Q6HRT PRN Shortness Of Breath Atorvastatin Calcium 80 mg 10/31/21 09:00 11/01/21 08:43 Atorvastatin 40 Mg Tablet FEED TUBE 80 mg DAILY MARINO Administration Chlorhexidine Gluconate 5 ml 10/31/21 09:00 11/01/21 08:50 Chlorhexidine Gluconate 0.12% Oral Rinse 473 Ml Btl (*Bkc) SWISH/SPIT 5 ml BID MARINO Administration Collagenase 1 applic 10/31/21 09:00 11/01/21 08:50 Collagenase Oint 30 Gm Tube TOPICAL 1 applic DAILY MARINO Administration Dextrose 12.5 gm 10/30/21 19:21 Dextrose 50% 25 Gm/50 Ml Syringe IV PUSH PRN PRN Hypoglycemia Protocol Furosemide 40 mg 11/01/21 09:00 Furosemide 40 Mg Tablet PO BID MARINO Glucagon 1 mg 10/30/21 19:21 Glucagon For Inj 1 Mg Vial IM PRN PRN Hypoglycemia Protocol Glucose 15 gm 10/30/21 19:21 Glucose Oral Gel 15 Gm Of Glucse In 37.5 Gm Tube PO PRN PRN Hypoglycemia Protocol Dextrose 1,000 mls @ 100 mls/hr 10/30/21 19:21 Dextrose 5% 1,000 Ml IVPB PRN PRN Hypoglycemia Protocol Potassium Chloride 100 mls @ 50 mls/hr 11/01/21 08:17 Kcl 20 Meq/Sw 100 Ml IVPB 11/01/21 10:16 ONCE ONE Metoprolol Tartrate 25 mg 10/31/21 09:00 11/01/21 08:44 Metoprolol Tartrate 25 Mg Tablet FEED TUBE 25 mg Q12HR MARINO Administration Pantoprazole Sodium 40 mg 10/31/21 09:00 11/01/21 08:43 Pantoprazole 40 Mg Tablet PO 40 mg QAM MARINO Administration Potassium Chloride 40 meq 11/01/21 09:00 Potassium Chloride 20 Meq Packet (For Liquid) PO DAILY MARINO Fluticasone/Salmeterol 2 puff 10/31/21 20:00 10/31/21 21:21 Fluticasone/Salmeterol 45-21 Mcg Inhaler 1 Puff INHALATION 2 puff Q12HRT MARINO Administration Trimethoprim/Sulfamethoxazole 1 tab 10/31/21 09:00 11/01/21 08:44 Trimethoprim/Sulfamethoxazole 160-800 Mg Ds Tablet PO 1 tab Q12HR MARINO Administration Radiology Res
[2021-11-01] MEDS: KCL 20 MEQ/SW 100 ML 100 ML 50 MEQ IVPB (09:47)
[2021-11-01] MEDS: FUROSEMIDE 40 MG TABLET PO ×2 (09:48→17:44)
[2021-11-01] MEDS: SODIUM CHLORIDE 0.9% IV 500 ML IV CONT (11:17)
[2021-11-01] MEDS: POTASSIUM CHLORIDE 20 MEQ PACKET (FOR LIQUID) 40 MEQ PO (11:19)
--- NOTE | 2021-11-01 11:56 | PCRCNOTE ---
Window of time for administration has passed. See next scheduled administration.
[2021-11-01 12:02] LABS: Glucose Point of Care 115 mg/dl (65-105)
[2021-11-01] MEDS: FLUTICASONE/SALMETEROL 45-21 MCG INHALER 1 PUFF 2 PUFF INHALATION ×2 (12:21→22:42)
[2021-11-01] MEDS: SODIUM CHLORIDE 0.9% IV 500 ML (12:40)
[2021-11-01] MEDS: cefTRIAXone 2 GM in SODIUM CHLORIDE 0.9% IV 100 ML 200 ML IVPB (12:43)
--- NOTE | 2021-11-01 13:43 | PCSTNOTE ---
Please refer to the Bedside Swallow Evaluation in the EMR. Please note, silent aspiration cannot be ruled out at bedside.
[2021-11-01 17:06] LABS: Glucose Point of Care 109 mg/dl (65-105)
[2021-11-01] MEDS: SACCHAROMYCES BOULARDII 250 MG CAPSULE PO (17:44)
[2021-11-01] MEDS: HALOPERIDOL LACTATE 5 MG/ML VIAL IM (21:24)
[2021-11-01 22:55] LABS: Glucose Point of Care 106 mg/dl (65-105)
[2021-11-02] MEDS: cefTRIAXone 2 GM in SODIUM CHLORIDE 0.9% IV 100 ML 200 ML IVPB ×2 (00:07→12:50)
[2021-11-02 05:14] VITALS: BP 148/49; PULSE 73; RESP 17; TEMP 36.1; O2SAT 98
[2021-11-02 05:54] LABS: Hematocrit 32.3 % (42.0-52.0); Hemoglobin 9.8 g/dL (14.0-18.0); Mean Corpuscular HGB Conc 30.3 g/dl (32-36); Mean Corpuscular Hemoglobin 25.6 pg (26-34); Mean Corpuscular Volume 84.3 fl (80-100); Mean Platelet Volume 9.7 fl (7.4-10.4); Platelet Count Result 298 k/mm3 (150-375); Red Blood Count 3.83 M/mm3 (4.6-6.20); Red Cell Distribution Width 18.9 % (11.5-14.5); White Blood Count 9.8 K/mm3 (4.5-10.0)
[2021-11-02 06:01] LABS: Alanine Aminotransferase 11 U/L (4-50); Albumin Level 3.4 g/dL (3.5-5.1); Alkaline Phosphatase 82 U/L (38-126); Anion Gap 12 mmol/L (8-16); Aspartate Amino Transferase 21 U/L (17-59); Bilirubin,Total 0.6 mg/dL (0.2-1.3); Blood Urea Nitrogen 10 mg/dL (9-20); Calcium 8.4 mg/dL (8.4-10.2); Carbon Dioxide 28 mmol/L (22-30); Chloride 99 mmol/L (98-107); Estimated CRCL calculation 56 ml/min; Estimated Glomerular Filt Rate 60; Glucose 167 mg/dL (65-110); Magnesium 1.3 mg/dL (1.6-2.3); Potassium 3.2 mmol/L (3.4-5.0); Sodium 139 mmol/L (137-145)
[2021-11-02 08:18] LABS: Glucose Point of Care 134 mg/dl (65-105)
--- NOTE | 2021-11-02 09:04 | P.DS_ITS ---
DS: Admitting Diagnosis Discharge Date 11/02/2021 Admitting Diagnosis Cholecystostomy tube dysfunction,PNA DS: Discharge Diagnosis Discharge Diagnosis (1) Cholecystostomy tube dysfunction: Code(s): T85.518A - Breakdown (mechanical) of other gastrointestinal prosthetic devices, implants and grafts, initial encounter Status: Acute Assessment and Plan: * Cholecystostomy tube became dislodged s/p fall * Surgery Dr. Mardaiaga has been consulted notes no evidence of acute cholecystitis. Will try low fat diet. No intervention needed * Imaging indicates Cholelithiasis. No evidence of acute cholecystitis. (2) Hypokalemia: Code(s): E87.6 - Hypokalemia Status: Acute Assessment and Plan: * Potassium 3.0>2.8>3.0>3.2 * Supplements given * Patient will discharge with potassium 40 mEq for 2 weeks and repeat CMP (3) Renal insufficiency: Code(s): N28.9 - Disorder of kidney and ureter, unspecified Status: Acute Assessment and Plan: * Resolved * Cr 1.40>1.20>1.00 >1.20 * received 2 L of normal saline in the emergency department * * (4) Cirrhosis: Code(s): K74.60 - Unspecified cirrhosis of liver Status: Acute Assessment and Plan: * CT of the chest abdomen and pelvis indicates cirrhosis of the liver * Will need to follow up with primary care physician (5) Obstructive sleep apnea: Code(s): G47.33 - Obstructive sleep apnea (adult) (pediatric) Status: Acute Assessment and Plan: * Continue supplementary oxygen at night. (6) Type 2 diabetes mellitus: Code(s): E11.9 - Type 2 diabetes mellitus without complications Status: Acute Assessment and Plan: * Blood sugar 134 * Continue home medication * A1c 5.7 (7) Chronic respiratory failure with hypoxia, on home oxygen therapy: Code(s): J96.11 - Chronic respiratory failure with hypoxia; Z99.81 - Dependence on supplemental oxygen Status: Acute Assessment and Plan: * According to , he is on p.r.n. oxygen, mainly at nighttime. (8) Hypertension: Code(s): I10 - Essential (primary) hypertension Status: Acute Assessment and Plan: * Blood pressure stable * Continue metoprolol 25 mg b.i.d. * Vital signs * Will adjust medications (9) Chronic obstructive pulmonary disease: Code(s): J44.9 - Chronic obstructive pulmonary disease, unspecified Status: Acute Assessment and Plan: * Stable * Started albuterol p.r.n. and Symbicort * Continue supplementary oxygen as needed (10) Congestive heart disease: Code(s): I50.9 - Heart failure, unspecified Status: Acute Assessment and Plan: * Mild pulmonary edema noted on imaging. * Changed lasix to 80mg daily instead of 20 mg daily * Daily weights reviewed * Intake and output reviewed * bnp in the am * bnp [id number] * repeat cxr indicates mild pulmonary edema * Will discharge with Lasix 40 mEq daily (11) Paroxysmal atrial fibrillation: Code(s): I48.0 - Paroxysmal atrial fibrillation Status: Acute Assessment and Plan: * Status post pacemaker insertion. * Admission EKG indicates pace with a heart rate of 59 * Not on long-term anticoagulation due to history of occult GI blood loss and anemia. (12) Dysphagia: Code(s): R13.10 - Dysphagia, unspecified Status: Acute Assessment and Plan: * Started m
--- NOTE | 2021-11-02 09:04 | PM.DS ---
DS: Admitting Diagnosis Discharge Date 11/02/2021 Admitting Diagnosis Cholecystostomy tube dysfunction,PNA DS: Discharge Diagnosis Discharge Diagnosis (1) Cholecystostomy tube dysfunction: Code(s): T85.518A - Breakdown (mechanical) of other gastrointestinal prosthetic devices, implants and grafts, initial encounter Status: Acute Assessment and Plan: Cholecystostomy tube became dislodged s/p fall Surgery Dr. Maradiaga has been consulted notes no evidence of acute cholecystitis. Will try low fat diet. No intervention needed Imaging indicates Cholelithiasis. No evidence of acute cholecystitis. (2) Hypokalemia: Code(s): E87.6 - Hypokalemia Status: Acute Assessment and Plan: Potassium 3.0>2.8>3.0>3.2 Supplements given Patient will discharge with potassium 40 mEq for 2 weeks and repeat CMP (3) Renal insufficiency: Code(s): N28.9 - Disorder of kidney and ureter, unspecified Status: Acute Assessment and Plan: Resolved Cr 1.40>1.20>1.00 >1.20 received 2 L of normal saline in the emergency department (4) Cirrhosis: Code(s): K74.60 - Unspecified cirrhosis of liver Status: Acute Assessment and Plan: CT of the chest abdomen and pelvis indicates cirrhosis of the liver Will need to follow up with primary care physician (5) Obstructive sleep apnea: Code(s): G47.33 - Obstructive sleep apnea (adult) (pediatric) Status: Acute Assessment and Plan: Continue supplementary oxygen at night. (6) Type 2 diabetes mellitus: Code(s): E11.9 - Type 2 diabetes mellitus without complications Status: Acute Assessment and Plan: Blood sugar 134 Continue home medication A1c 5.7 (7) Chronic respiratory failure with hypoxia, on home oxygen therapy: Code(s): J96.11 - Chronic respiratory failure with hypoxia; Z99.81 - Dependence on supplemental oxygen Status: Acute Assessment and Plan: According to , he is on p.r.n. oxygen, mainly at nighttime. (8) Hypertension: Code(s): I10 - Essential (primary) hypertension Status: Acute Assessment and Plan: Blood pressure stable Continue metoprolol 25 mg b.i.d. Vital signs Will adjust medications (9) Chronic obstructive pulmonary disease: Code(s): J44.9 - Chronic obstructive pulmonary disease, unspecified Status: Acute Assessment and Plan: Stable Started albuterol p.r.n. and Symbicort Continue supplementary oxygen as needed (10) Congestive heart disease: Code(s): I50.9 - Heart failure, unspecified Status: Acute Assessment and Plan: Mild pulmonary edema noted on imaging. Changed lasix to 80mg daily instead of 20 mg daily Daily weights reviewed Intake and output reviewed bnp in the am bnp [id number] repeat cxr indicates mild pulmonary edema Will discharge with Lasix 40 mEq daily (11) Paroxysmal atrial fibrillation: Code(s): I48.0 - Paroxysmal atrial fibrillation Status: Acute Assessment and Plan: Status post pacemaker insertion. Admission EKG indicates pace with a heart rate of 59 Not on long-term anticoagulation due to history of occult GI blood loss and anemia. (12) Dysphagia: Code(s): R13.10 - Dysphagia, unspecified Status: Acute Assessment and Plan: Started mechanical soft food and nectar thickened liquids. give Jevity 1.5, 1 carton at 20:00, 00:00, and 04:00 if he does not eat 3 solid meals. Communicated to nursing staff and dietitian. To continue speech therapy on discharge Patient's of his risk aspiration due to dysphagia. (13) Electrolyte imbalance: Code(s): E87.8 - Other disorders of electrolyte and fluid balance, not elsewhere classified Status: Acute Assessment and Plan: mag 1.4>1.7>1.3 Supplement given To continue magnesium supplements for 2 weeks with a
[2021-11-02] MEDS: ATORVASTATIN 40 MG TABLET 80 MG FEED TUBE (10:09)
[2021-11-02 10:10] VITALS: PULSE 74
[2021-11-02] MEDS: PANTOPRAZOLE 40 MG TABLET PO (10:10)
[2021-11-02] MEDS: FUROSEMIDE 40 MG TABLET PO (10:10)
[2021-11-02] MEDS: METOPROLOL TARTRATE 25 MG TABLET FEED TUBE (10:10)
[2021-11-02] MEDS: SACCHAROMYCES BOULARDII 250 MG CAPSULE PO (10:10)
[2021-11-02] MEDS: FLUTICASONE/SALMETEROL 45-21 MCG INHALER 1 PUFF 2 PUFF INHALATION (10:14)
[2021-11-02] MEDS: POTASSIUM CHLORIDE 20 MEQ PACKET (FOR LIQUID) 40 MEQ PO ×2 (10:29→10:45)
[2021-11-02] MEDS: MAGNESIUM SULF 4 GM/WATER100ML 4 GM/100 ML BAG IVPB (10:29)
[2021-11-02] MEDS: COLLAGENASE OINT 30 GM TUBE 1 APPLIC TOPICAL (10:30)
[2021-11-02] MEDS: CHLORHEXIDINE GLUCONATE 0.12% ORAL RINSE 473 ML BTL (*BKC) SWISH/SPIT (10:30)
[2021-11-02 12:08] LABS: Glucose Point of Care 107 mg/dl (65-105)
[2021-11-02 14:00] VITALS: BP 146/50; PULSE 53; RESP 18; TEMP 36; O2SAT 99
[2021-11-02 16:57] LABS: Glucose Point of Care 128 mg/dl (65-105)
[2021-11-02 17:47] LABS: EDCOVIDSCREEN Negative (Negative)
--- NOTE | 2021-11-02 18:01 | PC.NURSE ---
Addendum entered by Truong Haque RN 11/02/21 18:20: 18:10: [facility] called at this time, transportation will arrived at 18:30. Original Note: 1800: Report called at [facility] at this time. Report given to Simone JOHN.
== END 2021-11-02 19:53 ==
LOC: ANHED 07:45 → ANH3MED 10-31 08:06
PROVIDERS: Nurse Practitioner; Physician Assistant; Admitting Provider Family Medicine; Emergency Provider Emergency Medicine; Visit Provider Internal Medicine
DX: T85.590A Other mechanical complication of bile duct prosthesis, initial encounter (principal); J18.9 Pneumonia, unspecified organism; N28.9 Disorder of kidney and ureter, unspecified; E87.6 Hypokalemia; K74.60 Unspecified cirrhosis of liver; L98.429 Non-pressure chronic ulcer of back with unspecified severity; N39.0 Urinary tract infection, site not specified; E87.8 Other disorders of electrolyte and fluid balance, not elsewhere classified; R53.1 Weakness; I69.391 Dysphagia following cerebral infarction; R13.10 Dysphagia, unspecified; I69.320 Aphasia following cerebral infarction; D64.9 Anemia, unspecified; I11.0 Hypertensive heart disease with heart failure; I50.9 Heart failure, unspecified; E78.5 Hyperlipidemia, unspecified; I25.10 Atherosclerotic heart disease of native coronary artery without angina pectoris; E11.9 Type 2 diabetes mellitus without complications; J96.11 Chronic respiratory failure with hypoxia; Z99.81 Dependence on supplemental oxygen; I25.2 Old myocardial infarction; K21.9 Gastro-esophageal reflux disease without esophagitis; Y83.8 Other surgical procedures as the cause of abnormal reaction of the patient, or of later complication, without mention of misadventure at the time of the procedure; W19.XXXA Unspecified fall, initial encounter; E66.9 Obesity, unspecified; Z68.31 Body mass index [BMI] 31.0-31.9, adult; Z95.4 Presence of other heart-valve replacement; Z87.891 Personal history of nicotine dependence; Z79.82 Long term (current) use of aspirin; Z79.01 Long term (current) use of anticoagulants; Z79.84 Long term (current) use of oral hypoglycemic drugs; Z79.891 Long term (current) use of opiate analgesic; I48.0 Paroxysmal atrial fibrillation; J44.9 Chronic obstructive pulmonary disease, unspecified; Z95.0 Presence of cardiac pacemaker; Z95.1 Presence of aortocoronary bypass graft; Z66 Do not resuscitate; Z93.1 Gastrostomy status; Z20.822 Contact with and (suspected) exposure to COVID-19
CPT/HCPCS: 36415; 51701; 51702; 70450; 71045; 71260; 72125; 74177; 80048; 80053; 81001; 82550; 82948; 83036; 83605; 83735; 83880; 85025; 85027; 87040; 87086; 87088; 87426; 92526; 92610; 92611; 93005; 94640; 96361; 96365; 96366; 96367; 96372; 96375; 97163; 97165; 99285; A4248; A9270; C9803; G0378; J0456; J0696; J1630; J3475; J3480; J7030; J7040; Q9967

== ENCOUNTER 2021-11-25 00:14 | Emergency (ER) | payer OTHER, MEDICARE, SELFPAY ==
[2021-11-25] VITALS (18 sets, daily range): BP systolic 74–135; BP diastolic 36–75; PULSE 60–70; RESP 13–26; TEMP 36.3; O2SAT 94–99
--- NOTE | ~2021-11-25 | CT_ITS ---
EXAMINATION: CT brain wo con DATE: 11/25/2021 01:19 INDICATION: Headache. Fall. TECHNIQUE: Computed tomography (CT) of the head was performed without intravenous contrast. The mA wa s adjusted according to patient size. Iterative reconstruction technique was employed. The dose-lengt h product was 681.00 mGy-cm. COMPARISON: Head CT 10/30/2021 FINDINGS: There are small old infarcts in the cerebellum bilaterally. There is an old infarct in righ t occipital lobe. There are old infarcts in the right frontal, parietal, and extraocular lobes. There is an old infarct involving left frontoparietal temporal occipital region, posterior left insula, an d left thalamus. There are scattered areas of low attenuation in the cerebral white matter. There is no intracranial hemorrhage, acute infarction, or abnormal intracranial mass lesion. The ventricles ar e normal in size. There is mild mucosal thickening in the paranasal sinuses. The orbits are normal. T he mastoid air cells are normal. IMPRESSION: 1. Multiple old infarcts in the brain. 2. Stable moderate nonspecific cerebral white matter disease, which likely represents chronic small v essel ischemic disease. Reviewed, dictated and finalized at location A. CASKET ASSEMBLER IMPRESSION: 1. Multiple old infarcts in the brain. 2. Stable moderate nonspecific cerebral white matter disease, which likely repr esents chronic small vessel ischemic disease.
--- NOTE | ~2021-11-25 | XR_ITS ---
EXAMINATION: XR humerus RT DATE: 11/25/2021 01:26 INDICATION: Right upper arm pain. TECHNIQUE: 2 views of right humerus on 4 radiographs were obtained. COMPARISON: Chest single view 07/24/2020 FINDINGS: There is chronic widening of right acromioclavicular joint that may be from distal clavicle resection. No fracture. There is moderate osteoarthritis of glenohumeral joint. A radiopaque marker overlies the bicipital groove. IMPRESSION: 1. Moderate right glenohumeral joint osteoarthritis. Reviewed, dictated and finalized at location A. HBORHOOD CONSERVATION OFFICER
--- NOTE | ~2021-11-25 | CT_ITS ---
EXAMINATION: CT cervical spine wo con DATE: 11/25/2021 01:18 INDICATION: Neck pain. Fall. TECHNIQUE: Computed tomography (CT) of the cervical spine was performed without intravenous contrast. Automated exposure control and iterative reconstruction technique were employed. The dose-length pro duct was 515.78 mGy-cm. COMPARISON: CT cervical spine 10/30/21 FINDINGS: Bone alignment is normal. Vertebral body heights are normal. There is mildly decreased disc height at C4-C5 and C5-C6. The following disc levels are specifically discussed: C2-C3: There is mild right and moderate left uncovertebral joint osteoarthritis. There is severe bila teral facet joint osteoarthritis. There is mild left neural foraminal stenosis. There is no central c anal stenosis. C3-C4: There is mild right and moderate left uncovertebral joint osteoarthritis. There is severe bila teral facet joint osteoarthritis. There is mild bilateral neural foraminal stenosis. There is mild ce ntral canal stenosis. C4-C5: There is no uncovertebral joint osteoarthritis. There is severe bilateral facet joint osteoart hritis. There is mild left neural foraminal stenosis. There is mild central canal stenosis. C5-C6: There is mild right and moderate left uncovertebral joint osteoarthritis. There is severe bila teral facet joint osteoarthritis. There is mild bilateral neural foraminal stenosis. There is mild ce ntral canal stenosis. C6-C7: There is no uncovertebral joint osteoarthritis. There is severe bilateral facet joint osteoart hritis. There is mild bilateral neural foraminal stenosis. There is mild central canal stenosis. C7-T1: There is no uncovertebral joint osteoarthritis. There is severe bilateral facet joint osteoart hritis. There is mild bilateral neural foraminal stenosis. There is no central canal stenosis. IMPRESSION: 1. No fracture. 2. Mild cervical spondylosis. Reviewed, dictated and finalized at location A. ACCOUNTANT
--- NOTE | 2021-11-25 01:02 | ED.FALL ---
HPI - Fall General Chief Complaint: Fall Stated Complaint: fall Time Seen by Provider: 11/25/21 00:31 Source: patient, EMS and RN notes reviewed History of Present Illness HPI Narrative: Patient had an unwitnessed fall in his home nursing facility next to his bed unclear surrounding circumstances. Patient complains of pain in his right upper extremity history is limited due to patient's baseline aphasia. Related Data Home Medications Medication Instructions Recorded Confirmed budesonide-formoterol 2 puff INHALATION BID 07/24/20 10/30/21 pantoprazole [Protonix] 40 mg PO QAM 07/24/20 10/30/21 Santyl 2 applic TOPICAL DAILY 10/30/21 10/30/21 Spiriva Respimat 2.5 mcg INHALATION DAILY 10/30/21 10/30/21 atorvastatin [Lipitor] 80 mg FEEDING TUBE DAILY 10/30/21 10/30/21 chlorhexidine gluconate [Paroex 5 ml MUCOUS MEMBRANE BID 10/30/21 10/30/21 Oral Rinse] metoprolol tartrate 25 mg FEEDING TUBE BID 10/30/21 10/30/21 polyethylene glycol 3350 [Miralax] 17 g FEEDING TUBE DAILY 10/30/21 10/30/21 Allergies Allergy/AdvReac Type Severity Reaction Status Date / Time protamine Allergy Anaphylactic Verified 10/30/21 06:02 Shock Review of Systems Review of Systems: ROS unobtainable: Yes unobtainable due to medical condition PMFSH Past Medical History Medical History Anemia Aspiration pneumonia (07/2021) Cerebrovascular accident (04/2021) Resultant right side weakness, memory loss, dysphagia, and expressive aphasia. Chronic obstructive pulmonary disease Chronic respiratory failure with hypoxia, on home oxygen therapy Uses mostly at nighttime. Cirrhosis Noted on CT 10/30/2021, not previously known to the patient or his . Congestive heart disease Coronary artery disease Dysphagia Hyperlipidemia Hypertension Myocardial infarction (1999) Obstructive sleep apnea Paroxysmal atrial fibrillation Type 2 diabetes mellitus Surgical History Surgical History History of cardiac pacemaker History of four vessel coronary artery bypass graft History of gastrostomy tube placement History of orthopedic surgery History of repair of right rotator cuff History of transcatheter aortic valve replacement (TAVR) Status post excision of lipoma Removed from back. Family History Family History Father Carcinoma of colon Mother , Age 55. Acute myocardial infarction Sibling Kidney failure Social History Social History Social History: Surrogate decision maker: Nasrin Chacon, spouse. Code status: Do not resuscitate. Smoking status: Former smoker Alcohol intake: never Substance use: never Additional living arrangements comments: At [facility] since 08/2021. Prior to that he was living with his . 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 Was in the [employer] in the early 60s. Spiritual care concerns: No Exam Narrative: GENERAL: Appears chronically ill HEAD: Normocephalic, atraumatic. EYES: PERRLA and EOMI. ENT: Nares clear, no rhinorrhea or epistaxis. Mucous membranes moist. NECK: Supple. No masses. No JVD CHEST: minimal crackles when patient is supine No respiratory distress. No wheezes rales or rhonchi HEART: Regular rate and rhythm. No murmur heard. Normal peripheral pulses. ABDOMEN: Soft, nontender, nondistended : Superficial scrotal laceration noted just left of midline no active bleeding EXTREMITIES: Normal range of motion. No edema. SKIN: Multiple various age skin tears abrasions and ecchymoses most noted on the bilateral upper extremities recent skin tear noted on the bilateral elbows NEURO: No focal deficits. Alert and oriented to self PSYCH: Normal mood and affect. Course Reevaluation(s) Reevaluation #
[2021-11-25] MEDS: SODIUM CHLORIDE 0.9% IV 500 ML 999 ML IV CONT ×4 (01:38→04:37)
[2021-11-25] MEDS: LIDOCAINE, EPINEPHRINE, TETRACAINE VISCOUS SOLN 3 ML TOPICAL (01:38)
[2021-11-25 01:49] LABS: Basophils Absolute Auto 0.1 K/mm3 (0.0-0.1); Basophils Percent Auto 0.5 % (0.2-1.2); Eosinophils Absolute Auto 0.2 K/mm3 (0-0.3); Hemoglobin 12.3 g/dL (14.0-18.0); Immature Granulocyte Absolute 0.03 K/mm3 (0.00-0.031); Immature Granulocyte Percent A 0.3 % (0-0.5); Lymphocytes Absolute Auto 0.87 K/mm3 (0.9-3.2); Lymphocytes Percent Auto 8.1 % (18.3-44.2); Mean Corpuscular HGB Conc 30.8 g/dl (32-36); Mean Corpuscular Hemoglobin 26.7 pg (26-34); Mean Corpuscular Volume 86.8 fl (80-100); Monocytes Absolute Auto 0.8 K/mm3 (0.1-0.6); Monocytes Percent Auto 7.5 % (2.6-8.5); Neutrophils Absolute Auto 8.8 K/mm3 (1.3-6.7); Neutrophils Percent Auto 81.6 % (45.5-73.1); Platelet Count Result 245 k/mm3 (150-375); Red Blood Count 4.61 M/mm3 (4.6-6.20); Red Cell Distribution Width 19.5 % (11.5-14.5); White Blood Count 10.7 K/mm3 (4.5-10.0)
[2021-11-25 01:54] LABS: Add Urine Microscopic? YES; Appearance Urine Turbid (Clear); Bacteria Urine 1+ /hpf; Bilirubin Urine Negative (Negative); Blood Urine 3+ (Negative); Color Urine Yellow (Yellow); Glucose Urine UA Negative (Negative); Hyaline Casts Urine 15-19 /lpf; Ketones Urine Negative (Negative); Leukocyte Esterase Ur 3+ LEU/UL (Negative); Mucus Urine Heavy /lpf; Nitrate Urine Negative (Negative); Protein Urine 1+ mg/dL (Negative); RBC Urine >75 /hpf (0-2); Specific Grav Ur 1.012 (1.001-1.035); Urobilinogen Urine Negative mg/dL (<2.0); WBC Clumps Urine Present /HPF; WBC Urine >75 /hpf
[2021-11-25 02:00] LABS: Alanine Aminotransferase 13 U/L (4-50); Albumin Level 3.8 g/dL (3.5-5.1); Alkaline Phosphatase 101 U/L (38-126); Anion Gap 10 mmol/L (8-16); Aspartate Amino Transferase 23 U/L (17-59); Bilirubin,Total 0.7 mg/dL (0.2-1.3); Blood Urea Nitrogen 15 mg/dL (9-20); Calcium 9.4 mg/dL (8.4-10.2); Carbon Dioxide 24 mmol/L (22-30); Chloride 105 mmol/L (98-107); Estimated Glomerular Filt Rate 50; Glucose 126 mg/dL (65-110); Potassium 4.4 mmol/L (3.4-5.0); Sodium 139 mmol/L (137-145)
[2021-11-25 02:01] LABS: Lactic Acid Reflex 3.8 mmol/L (0.7-2.1)
[2021-11-25 04:02] LABS: EDCOVIDSCREEN Negative (Negative)
[2021-11-25] MEDS: LIDOCAINE HCL 2% GEL UROJET 10 ML PKG MUCOUS MEM (04:36)
[2021-11-25 04:46] LABS: Reflex Lactic Acid Yes or No Add Lactic
[2021-11-25 05:27] LABS: Lactic Acid 1.4 mmol/L (0.7-2.1)
--- NOTE | 2021-11-25 08:23 | PC.NURSE ---
[facility] reports ETA of 0845 to transfer patient.
== END 2021-11-25 08:45 ==
PROVIDERS: Emergency Provider Emergency Medicine
DX: N39.0 Urinary tract infection, site not specified (principal); E87.2 Acidosis; D64.9 Anemia, unspecified; I50.9 Heart failure, unspecified; I25.10 Atherosclerotic heart disease of native coronary artery without angina pectoris; I25.2 Old myocardial infarction; G47.30 Sleep apnea, unspecified; I48.91 Unspecified atrial fibrillation
CPT/HCPCS: 12001; 36415; 70450; 72125; 73060; 80053; 81001; 83605; 85025; 87040; 87077; 87086; 87186; 87426; 96361; 96365; 99285; C9803; J0696; J7040

== ENCOUNTER 2022-04-22 17:13 | Observation (INO) | payer OTHER, MEDICARE, MEDICAID, SELFPAY ==
[2022-04-22] VITALS (19 sets, daily range): BP systolic 119–165; BP diastolic 50–81; PULSE 60–71; RESP 18–26; O2SAT 91–96
--- NOTE | ~2022-04-22 | CT_ITS ---
EXAMINATION: CT brain wo con DATE: 04/22/2022 19:06 INDICATION: seizure like activity . TECHNIQUE: Computed tomography (CT) of the head was performed without intravenous contrast. The mA wa s adjusted according to patient size. Iterative reconstruction technique was employed. The dose-lengt h product was 756.67 mGy-cm. COMPARISON: None FINDINGS: No acute intracranial hemorrhage or extra-axial fluid collection. No hydrocephalus, mass, or herniation. No acute ischemic infarct. Unremarkable dural venous sinus attenuation. No acute osseous abnormality. Air-fluid level in the right maxillary sinus, otherwise the aerated spaces are clear. Moderate atrophy and severe chronic white matter change. Old bilateral cerebellar, bilateral basal ga nglia, left MCA territory, right frontal, right parietal, and right medial occipital infarcts. Athero sclerotic intracranial calcifications. IMPRESSION: No acute intracranial process. Right maxillary sinus findings may reflect acute sinusitis in the appr opriate clinical context. Reviewed, dictated and finalized at location K. IMPRESSION: No acute intracranial process. Right maxillary sinus findings may reflect acute sinusitis in the appropriate clinical context.
--- NOTE | 2022-04-22 18:18 | ECG_ITS ---
Measurements Intervals [place] Rate: 60 P: WA: 0 QRS: -21 QRSD: 174 T: 106 QT: 500 QTc: 500 Interpretive Statements ELECTRONIC VENTRICULAR PACEMAKER PROBABLE UNDERLYING ATRIAL FIBRILLATION. ABNORMAL RHYTHM ECG COMPARED TO ECG 10/30/2021 11:04:15 THE PREVIOUSLY NOTED LATERAL AND ANTERIOR ST SEGMENT CHANGES HAVE RESOLVED. Electronically Signed On 04-22-2022 22:52:35 CDT by Rafaela Marlow M.D.
--- NOTE | 2022-04-22 18:48 | ED.SEIZURE ---
HPI - Seizure General Chief Complaint: Seizure <Aimee Black PA-C - Last Filed: 04/23/22 00:49> Stated Complaint: seizure like activity <Aimee Black PA-C - Last Filed: 04/23/22 00:49> Time Seen by Provider: 04/22/22 18:14 <Aimee Black PA-C - Last Filed: 04/23/22 00:49> Source: patient and family <TENA Nation Last Filed: 04/23/22 00:49> Mode of arrival: EMS <TENA Nation Last Filed: 04/23/22 00:49> Limitations: other (history of CVA with residual dementia) <Aimee Black PA-C - Last Filed: 04/23/22 00:49> History of Present Illness HPI Narrative: This is a 71-year-old male that presents to the emergency department for her possible seizure-like activity. Patient is currently on hospice due to a massive stroke last year. His hospice FORGING ENGINEER reports that his eyes started to roll in the back of his head. She saw some shaking-like movements of his arms. This lasted for maybe a couple of minutes and resolved without intervention. He does not have any previous history of seizures so they brought him in to be evaluated. Patient does not have any complaints currently. <Aimee Black PA-C - Last Filed: 04/23/22 00:49> Related Data Home Medications: Home Medications Medication Instructions Recorded Confirmed budesonide-formoterol HFA 160 2 puff inhalation BID 07/24/20 10/30/21 mcg-4.5 mcg/actuation aerosol inhaler pantoprazole 40 mg tablet,delayed 40 mg PO QAM 07/24/20 10/30/21 release (Protonix) atorvastatin 80 mg tablet (Lipitor) 80 mg feeding tube DAILY 10/30/21 10/30/21 chlorhexidine gluconate 0.12 % 5 ml mucous membrane BID 10/30/21 10/30/21 mouthwash (Paroex Oral Rinse) collagenase clostridium histo. 250 2 applic topical DAILY 10/30/21 10/30/21 unit/gram topical ointment (Santyl) metoprolol tartrate 25 mg tablet 25 mg feeding tube BID 10/30/21 10/30/21 polyethylene glycol 3350 17 17 g feeding tube DAILY 10/30/21 10/30/21 gram/dose oral powder (Miralax) tiotropium bromide 2.5 2.5 mcg inhalation DAILY 10/30/21 10/30/21 mcg/actuation mist for inhalation (Spiriva Respimat) <Aimee Black PA-C - Last Filed: 04/23/22 00:49> Allergies/Adverse Reactions: Allergies Allergy/AdvReac Type Severity Reaction Status Date / Time protamine Allergy Anaphylactic Verified 04/22/22 17:28 Shock <TENA Nation Last Filed: 04/23/22 00:49> Review of Systems Review of Systems: ROS unobtainable: Yes unobtainable due to medical condition <TENA Nation Last Filed: 04/23/22 00:49> [facility] Past Medical History Medical History: Medical History Anemia Aspiration pneumonia (07/2021) Cerebrovascular accident (04/2021) Resultant right side weakness, memory loss, dysphagia, and expressive aphasia. Chronic obstructive pulmonary disease Chronic respiratory failure with hypoxia, on home oxygen therapy Uses mostly at nighttime. Cirrhosis Noted on CT 10/30/2021, not previously known to the patient or his . Congestive heart disease Coronary artery disease Dysphagia Hyperlipidemia Hypertension Myocardial infarction (1999) Obstructive sleep apnea Paroxysmal atrial fibrillation Type 2 diabetes mellitus <TENA Nation Last Filed: 04/23/22 00:49> Surgical History Surgical History: Surgical History History of cardiac pacemaker History of four vessel coronary artery bypass graft History of gastrostomy tube placement History of orthopedic surgery History of repair of right rotator cuff History of transcatheter aortic valve replacement (TAVR) Status post excision of lipoma Removed from back. <TENA Nation Last Filed: 04/23/22 00:49> Family History Family History: Family History Father Carcinoma of colo
[2022-04-22 18:52] LABS: Glucose Point of Care 143 mg/dl (65-105)
[2022-04-22 20:03] LABS: Basophils Absolute Auto 0.1 K/mm3 (0.0-0.1); Basophils Percent Auto 0.7 % (0.2-1.2); Eosinophils Absolute Auto 0.2 K/mm3 (0-0.3); Hemoglobin 11.9 g/dL (14.0-18.0); Immature Granulocyte Absolute 0.03 K/mm3 (0.00-0.031); Immature Granulocyte Percent A 0.3 % (0-0.5); Lymphocytes Absolute Auto 0.77 K/mm3 (0.9-3.2); Lymphocytes Percent Auto 8.1 % (18.3-44.2); Mean Corpuscular HGB Conc 30.5 g/dl (32-36); Mean Corpuscular Hemoglobin 24.7 pg (26-34); Mean Corpuscular Volume 81.1 fl (80-100); Mean Platelet Volume 9.5 fl (7.4-10.4); Monocytes Absolute Auto 0.6 K/mm3 (0.1-0.6); Monocytes Percent Auto 6.1 % (2.6-8.5); Neutrophils Absolute Auto 7.9 K/mm3 (1.3-6.7); Neutrophils Percent Auto 82.8 % (45.5-73.1); Platelet Count Result 215 k/mm3 (150-375); Red Blood Count 4.81 M/mm3 (4.6-6.20); Red Cell Distribution Width 18.1 % (11.5-14.5); White Blood Count 9.5 K/mm3 (4.5-10.0)
[2022-04-22 20:12] LABS: Lactic Acid Reflex 1.5 mmol/L (0.7-2.0)
[2022-04-22 20:12] LABS: Appearance Urine Cloudy (Clear); Bilirubin Urine 1+ (Negative); Blood Urine 3+ (Negative); Color Urine Yellow (Yellow); Glucose Urine UA Trace mg/dL (Negative); Ketones Urine Negative (Negative); Leukocyte Esterase Ur 3+ LEU/UL (Negative); Nitrate Urine Positive (Negative); Protein Urine 2+ mg/dL (Negative); Specific Grav Ur 1.025 (1.001-1.035); pH Urine 5.5 (5.0-9.0)
[2022-04-22 20:16] LABS: Ethanol < 10 mg/dL (<10)
[2022-04-22 20:17] LABS: Alanine Aminotransferase 9 U/L (6-50); Albumin Level 3.5 g/dL (3.5-5.1); Alkaline Phosphatase 79 U/L (38-126); Anion Gap 6 mmol/L (8-16); Aspartate Amino Transferase 18 U/L (17-59); Bilirubin,Total 0.5 mg/dL (0.2-1.3); Blood Urea Nitrogen 12 mg/dL (9-20); Calcium 8.4 mg/dL (8.4-10.2); Carbon Dioxide 27 mmol/L (22-30); Chloride 103 mmol/L (98-107); Creatine Kinase 30 U/L (55-170); Estimated CRCL calculation 70 ml/min; Estimated Glomerular Filt Rate > 60; Glucose 118 mg/dL (65-110); Magnesium 1.5 mg/dL (1.6-2.3); Sodium 136 mmol/L (137-145)
[2022-04-22 20:27] LABS: Bacteria Urine 1+ /hpf; RBC Urine >75 /hpf (0-2); WBC Urine >75 /hpf
[2022-04-22 20:28] LABS: Add Urine Microscopic? YES
[2022-04-22] MEDS: MAGNESIUM SULF 1 GM/D5W 100 ML 1 GM/100 ML BAG IVPB (21:02)
[2022-04-22] MEDS: POTASSIUM CHLORIDE 20 MEQ PACKET (FOR LIQUID) 40 MEQ PO (21:03)
[2022-04-22 22:03] LABS: Amphetamine Screen Urine Negative (Negative); Barbiturate Screen Urine Negative (Negative); Benzodiazepines Screen Urine Negative (Negative); Cannabinoid Screen Urine Negative (Negative); Cocaine Screen Urine Negative (Negative); Methadone Screen Urine Negative (Negative); Opiate Screen Urine Negative (Negative); Phencyclidine Screen Urine Negative (Negative)
[2022-04-23] VITALS (10 sets, daily range): BP systolic 138–146; BP diastolic 50–64; PULSE 60–70; RESP 16–18; TEMP 36.3–36.4; O2SAT 94–97
--- NOTE | 2022-04-23 01:03 | PM.IMHP ---
H&P: HPI History of Present Illness Date/Time: 04/23/22 01:03 Chief Complaint: seizure Narrative: this is a 71-year-old male with past medical history significant for stroke patient is bed ridden and has been on hospice however today he was noted by his home nurse involuntary movement of the right-sided I was brought to the emergency room for evaluation. Patient has revoked his hospice status as well as his code status. patient has been in his usual state of health up until this point. Preliminary workup Was significant for urinalysis with numerous WBCs present. head CT did not show any acute intracranial abnormalities. Most of the history has been obtained from who is at bedside. Review of Systems Review of Systems: ROS unobtainable: Yes unobtainable due to medical condition ( chronic stroke) [facility] Past Medical History Medical History Anemia Aspiration pneumonia (07/2021) Cerebrovascular accident (04/2021) Resultant right side weakness, memory loss, dysphagia, and expressive aphasia. Chronic obstructive pulmonary disease Chronic respiratory failure with hypoxia, on home oxygen therapy Uses mostly at nighttime. Cirrhosis Noted on CT 10/30/2021, not previously known to the patient or his . Congestive heart disease Coronary artery disease Dysphagia Hyperlipidemia Hypertension Myocardial infarction (1999) Obstructive sleep apnea Paroxysmal atrial fibrillation Type 2 diabetes mellitus Surgical History Surgical History History of cardiac pacemaker History of four vessel coronary artery bypass graft History of gastrostomy tube placement History of orthopedic surgery History of repair of right rotator cuff History of transcatheter aortic valve replacement (TAVR) Status post excision of lipoma Removed from back. Family History Family History Father Carcinoma of colon Mother , Age 55. Acute myocardial infarction Sibling Kidney failure Social History Social History Social History: Surrogate decision maker: Nasrin Chacon, spouse. Code status: Do not resuscitate. Smoking status: Former smoker Alcohol intake: never Substance use: never Additional living arrangements comments: At [facility] since 08/2021. Prior to that he was living with his . 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 Was in the [employer] in the early 60s. Spiritual care concerns: No Meds Home Medications and Allergies Home Medications Medication Instructions Recorded Confirmed Type budesonide-formoterol HFA 160 2 puff inhalation BID 07/24/20 10/30/21 History mcg-4.5 mcg/actuation aerosol inhaler pantoprazole 40 mg tablet,delayed 40 mg PO QAM 07/24/20 10/30/21 History release (Protonix) atorvastatin 80 mg tablet (Lipitor) 80 mg feeding tube DAILY 10/30/21 10/30/21 History chlorhexidine gluconate 0.12 % 5 ml mucous membrane BID 10/30/21 10/30/21 History mouthwash (Paroex Oral Rinse) collagenase clostridium histo. 250 2 applic topical DAILY 10/30/21 10/30/21 History unit/gram topical ointment (Santyl) metoprolol tartrate 25 mg tablet 25 mg feeding tube BID 10/30/21 10/30/21 History polyethylene glycol 3350 17 17 g feeding tube DAILY 10/30/21 10/30/21 History gram/dose oral powder (Miralax) tiotropium bromide 2.5 2.5 mcg inhalation DAILY 10/30/21 10/30/21 History mcg/actuation mist for inhalation (Spiriva Respimat) Saccharomyces boulardii 250 mg 250 mg PO BID 7 days #14 caps 11/02/21 Rx capsule (Florastor) azithromycin 500 mg tablet 500 mg PO DAILY 7 days #7 tabs 11/02/21 Rx cefdinir 300 mg capsule 300 mg PO Q12H 7 days #14 caps 11/02/21 Rx furosemide 20 mg tablet (Lasix) 40 mg feeding tube PILLO
--- NOTE | 2022-04-23 01:05 | ADMGEN ---
This patient, Dong Chacon, was admitted to Medical Room 251-. Patient/family oriented to hospital policies and general routines including ID bracelet, bed and alarms, visiting hours, pain management, procedures, bathroom and other care routines, personal items, smoking policy, room service/diet, and visiting hours. Information on how to activate the Rapid Response Team has been discussed. Patient/Family are encouraged to report perceived risks to care and to ask questions if they do not understand what they are told or what they should do.
--- NOTE | 2022-04-23 01:17 | PC.NURSE ---
CALLED PT SPOUSE GLORIA JENNINGS TO ANSWER ADMISSION QUESTIONS. SHE PROVIDED ALL INFORMATION EXCEPT CONFIRMING PT MEDICATION LIST. SHE STATED SHE WOULD CALL BACK TOMORROW MORNING WHEN SHE WAS ABLE TO GET ALL THE MEDICATIONS TOGETHER.
--- NOTE | 2022-04-23 03:49 | PC.NURSE ---
0340 INITIATED CURIEL CATHETER SUCCESSFULLY. PT SCREAMING AND CURSING STATING HE DOES NOT WANT IT IN. HE PT HAS BECOME INCREASINGLY AGITATED EVERY TIME WE ENTER THE ROOM.
--- NOTE | 2022-04-23 07:55 | PM.IMPN ---
Progress Note: A&P Assessment and Plan (1) Acute UTI: Code(s): N39.0 - Urinary tract infection, site not specified Status: Acute Assessment and Plan: CBC, CMP, UA, reviewed Obtain urine culture, patient is a history of VRE and E coli Follow temp curve, cultures, WBC, and VS started Ceftriaxone 1g IV daily, may need to transition antibiotics pending urine cultures (2) Hypomagnesemia: Code(s): E83.42 - Hypomagnesemia Status: Acute Assessment and Plan: Replacing electrolytes as needed Patient received 1 g magnesium sulfate in the emergency department (3) Acute hypokalemia: Code(s): E87.6 - Hypokalemia Status: Acute Assessment and Plan: Replace serum electrolytes as needed Patient received 40 mEq of IVPB in the emergency department, with additional 40 mEq Klor-Con administered while the patient was admitted on the floor on 04/23/2022 (4) Seizure-like activity: Code(s): R56.9 - Unspecified convulsions Status: Acute Assessment and Plan: continue to monitor no new events (5) Paroxysmal atrial fibrillation: Code(s): I48.0 - Paroxysmal atrial fibrillation Status: Acute Assessment and Plan: rate controlled (6) Chronic obstructive pulmonary disease: Code(s): J44.9 - Chronic obstructive pulmonary disease, unspecified Status: Acute Assessment and Plan: stable continue home meds (7) Hypertension: Code(s): I10 - Essential (primary) hypertension Status: Acute Assessment and Plan: continue home meds continue to monitor Subjective Date/time seen: 04/23/22 07:55 Patient is alert and oriented. Patient is bed ridden however is able to feed himself. Patient has a history of E coli and VRE in his urine. Pending urine cultures. Continue current antibiotic treatment. Patient denies any chest pain, shortness of breath, nausea, vomiting, upset stomach or diarrhea. Patient can be contained crease with nursing staff. Apparently the patient is incontinent of stool and refused to have nursing staff agreement this morning. Pending med rec completion. Review of Systems Review of Systems: All systems reviewed & are unremarkable except as noted in HPI and below Exam Narrative: General: No acute distress. Mental Status: Awake, alert and oriented to person, place, and time with clear speech. Skin: Skin in warm, dry and intact without rashes or lesions. Head: Normocephalic and atraumatic. Eyes: Conjunctivae are clear without exudates or hemorrhage. Sclera is non-icteric. EOM are intact, PERRLA. Ears: The external ear and canal are non-tender and without swelling or discharge. Nose: Nasal mucosa is pink and moist. Septum midline. Nares patent bilaterally. Throat: Oral mucosa pink and moist with good dentition. Tongue midline. Neck: The neck supple without adenopathy. Trachea midline. No JVD. Cardiac: S1 and S2 regular rate and rhythm. No murmurs, gallops, or rubs auscultated. Respiratory: Chest wall symmetric, nontender and without deformity or trauma. Respirations even and unlabored. Lung sounds are clear to auscultation in all lobes bilaterally without wheezes, rhonchi, or rales. Abdominal: Abdomen soft, round and non-tender to palpation. Bowel sounds present and normoactive in all 4 quadrants. Spine: Neck and back with grossly normal curvature, no deformity in appearance or signs of trauma. Extremities: Upper and lower extremities atraumatic without tenderness with footdrop to bilateral lower extremities Full range of motion and muscle strength 4/5 to upper extremities bilaterally.0/5 bilateral lower extremities Neurological: Full and symmetric motor and decreased sensation to light touch sensation bilaterally. Cranial nerves II-XII grossly intact. Urinary: Urinary catheter patent and draining Objective Data Vital Signs Vital Signs: Vital Signs - 24 hr 04/22/22 17:21 04/22/22 17:21 04/22/22 17:
[2022-04-23 08:16] LABS: Glucose Point of Care 87 mg/dl (65-105)
[2022-04-23 08:59] LABS: Basophils Absolute Auto 0.1 K/mm3 (0.0-0.1); Basophils Percent Auto 0.6 % (0.2-1.2); Eosinophils Absolute Auto 0.5 K/mm3 (0-0.3); Eosinophils Percent Auto 5.7 % (0-4.4); Hematocrit 38.8 % (42.0-52.0); Immature Granulocyte Absolute 0.03 K/mm3 (0.00-0.031); Immature Granulocyte Percent A 0.4 % (0-0.5); Lymphocytes Absolute Auto 1.29 K/mm3 (0.9-3.2); Lymphocytes Percent Auto 16.3 % (18.3-44.2); Mean Corpuscular HGB Conc 30.9 g/dl (32-36); Mean Corpuscular Hemoglobin 25.1 pg (26-34); Mean Corpuscular Volume 81.2 fl (80-100); Mean Platelet Volume 9.8 fl (7.4-10.4); Monocytes Absolute Auto 0.5 K/mm3 (0.1-0.6); Monocytes Percent Auto 6.8 % (2.6-8.5); Neutrophils Absolute Auto 5.5 K/mm3 (1.3-6.7); Neutrophils Percent Auto 70.2 % (45.5-73.1); Platelet Count Result 207 k/mm3 (150-375); Red Blood Count 4.78 M/mm3 (4.6-6.20); Red Cell Distribution Width 17.9 % (11.5-14.5); White Blood Count 7.9 K/mm3 (4.5-10.0)
[2022-04-23 09:11] LABS: Alanine Aminotransferase 7 U/L (6-50); Albumin Level 3.5 g/dL (3.5-5.1); Alkaline Phosphatase 81 U/L (38-126); Anion Gap 7 mmol/L (8-16); Aspartate Amino Transferase 17 U/L (17-59); Bilirubin,Total 0.5 mg/dL (0.2-1.3); Blood Urea Nitrogen 10 mg/dL (9-20); Calcium 8.5 mg/dL (8.4-10.2); Carbon Dioxide 29 mmol/L (22-30); Chloride 103 mmol/L (98-107); Estimated CRCL calculation 70 ml/min; Estimated Glomerular Filt Rate > 60; Glucose 89 mg/dL (65-110); Potassium 3.1 mmol/L (3.4-5.0); Sodium 139 mmol/L (137-145)
[2022-04-23] MEDS: ENOXAPARIN 40 MG/0.4 ML SYRINGE SUB-Q (10:54)
[2022-04-23 11:38] LABS: Hemoglobin A1C 5.2 % (<5.7)
[2022-04-23 11:56] LABS: Glucose Point of Care 142 mg/dl (65-105)
[2022-04-23] MEDS: POTASSIUM CHLORIDE 20 MEQ TABLET 40 MEQ PO (12:40)
--- NOTE | 2022-04-23 13:07 | PCOTNOTE ---
Attempted to see patient for OT evaluation. Patient adamantly declined any/all activity at this time despite encouragement. Will continue to attempt.
--- NOTE | 2022-04-23 14:00 | PCPTNOTE ---
Physical therapy initial evaluation attempted, patient refused. Will continue to follow.
[2022-04-23 16:12] LABS: Glucose Point of Care 102 mg/dl (65-105)
[2022-04-23] MEDS: MELATONIN 5 MG TABLET PO (20:37)
[2022-04-23 22:03] LABS: Glucose Point of Care 113 mg/dl (65-105)
[2022-04-24] VITALS (9 sets, daily range): BP systolic 131–166; BP diastolic 55–65; PULSE 60–68; RESP 16–18; TEMP 36.2–36.4; O2SAT 98
[2022-04-24 05:40] LABS: Basophils Absolute Auto 0.1 K/mm3 (0.0-0.1); Basophils Percent Auto 0.9 % (0.2-1.2); Eosinophils Absolute Auto 0.3 K/mm3 (0-0.3); Eosinophils Percent Auto 4.8 % (0-4.4); Hematocrit 39.6 % (42.0-52.0); Hemoglobin 12.1 g/dL (14.0-18.0); Immature Granulocyte Absolute 0.04 K/mm3 (0.00-0.031); Immature Granulocyte Percent A 0.6 % (0-0.5); Lymphocytes Absolute Auto 0.85 K/mm3 (0.9-3.2); Lymphocytes Percent Auto 12.6 % (18.3-44.2); Mean Corpuscular HGB Conc 30.6 g/dl (32-36); Mean Corpuscular Hemoglobin 24.9 pg (26-34); Mean Corpuscular Volume 81.5 fl (80-100); Mean Platelet Volume 9.7 fl (7.4-10.4); Monocytes Absolute Auto 0.5 K/mm3 (0.1-0.6); Monocytes Percent Auto 7.1 % (2.6-8.5); Platelet Count Result 211 k/mm3 (150-375); Red Blood Count 4.86 M/mm3 (4.6-6.20); Red Cell Distribution Width 18.3 % (11.5-14.5); White Blood Count 6.7 K/mm3 (4.5-10.0)
[2022-04-24 05:47] LABS: Alanine Aminotransferase 6 U/L (6-50); Albumin Level 3.6 g/dL (3.5-5.1); Alkaline Phosphatase 85 U/L (38-126); Anion Gap 4 mmol/L (8-16); Aspartate Amino Transferase 17 U/L (17-59); Bilirubin,Total 0.6 mg/dL (0.2-1.3); Blood Urea Nitrogen 9 mg/dL (9-20); Calcium 8.5 mg/dL (8.4-10.2); Carbon Dioxide 29 mmol/L (22-30); Chloride 105 mmol/L (98-107); Estimated CRCL calculation 63 ml/min; Estimated Glomerular Filt Rate > 60; Glucose 93 mg/dL (65-110); Magnesium 1.7 mg/dL (1.6-2.3); Potassium 3.3 mmol/L (3.4-5.0); Sodium 138 mmol/L (137-145)
--- NOTE | 2022-04-24 06:40 | PM.IMPN ---
Progress Note: A&P Assessment and Plan (1) Acute UTI: Code(s): N39.0 - Urinary tract infection, site not specified Status: Acute Assessment and Plan: CBC, CMP, UA, reviewed Urine culture revealed Pseudomonas, patient has a history of VRE and E coli as well Follow temp curve, cultures, WBC, and VS Patient was initiated on ceftriaxone upon admission, however after urine cultures revealed Pseudomonas the patient was transitioned to ciprofloxacin b.i.d. (2) Hypomagnesemia: Code(s): E83.42 - Hypomagnesemia Status: Acute Assessment and Plan: Replacing electrolytes as needed Patient received 1 g magnesium sulfate in the emergency department -stable (3) Acute hypokalemia: Code(s): E87.6 - Hypokalemia Status: Acute Assessment and Plan: Replace serum electrolytes as needed Patient received 40 mEq of IVPB in the emergency department, with additional 40 mEq Klor-Con administered while the patient was admitted on the floor on 04/23/2022 Administered 40 mEq of Klor-Con due to a potassium of 3.3 on 04/24/2022 (4) Seizure-like activity: Code(s): R56.9 - Unspecified convulsions Status: Acute Assessment and Plan: continue to monitor no new events (5) Paroxysmal atrial fibrillation: Code(s): I48.0 - Paroxysmal atrial fibrillation Status: Acute Assessment and Plan: rate controlled (6) Chronic obstructive pulmonary disease: Code(s): J44.9 - Chronic obstructive pulmonary disease, unspecified Status: Acute Assessment and Plan: stable continue home meds (7) Hypertension: Code(s): I10 - Essential (primary) hypertension Status: Acute Assessment and Plan: continue home meds continue to monitor Subjective Date/time seen: 04/24/22 06:40 Patient was evaluated this morning at bedside. Patient was able to drink self in bed to his right side. Patient denies any acute abdominal pain, nausea, vomiting upset stomach or diarrhea. Patient has been afebrile. He also does not have a leukocytosis. Urine culture grew Pseudomonas therefore the patient's antibiotics were switched to ciprofloxacin b.i.d. plan to send the patient back to skilled facility on 04/25/2022. Review of Systems Review of Systems: All systems reviewed & are unremarkable except as noted in HPI and below Exam Narrative: General: No acute distress. Mental Status: Awake, alert and oriented to person, place, and time with clear speech. Skin: Skin in warm, dry and intact without rashes or lesions. Head: Normocephalic and atraumatic. Eyes: Conjunctivae are clear without exudates or hemorrhage. Sclera is non-icteric. EOM are intact, PERRLA. Ears: The external ear and canal are non-tender and without swelling or discharge. Nose: Nasal mucosa is pink and moist. Septum midline. Nares patent bilaterally. Throat: Oral mucosa pink and moist with good dentition. Tongue midline. Neck: The neck supple without adenopathy. Trachea midline. No JVD. Cardiac: S1 and S2 regular rate and rhythm. No murmurs, gallops, or rubs auscultated. Respiratory: Chest wall symmetric, nontender and without deformity or trauma. Respirations even and unlabored. Lung sounds are clear to auscultation in all lobes bilaterally without wheezes, rhonchi, or rales. Abdominal: Abdomen soft, round and non-tender to palpation. Bowel sounds present and normoactive in all 4 quadrants. Spine: Neck and back with grossly normal curvature, no deformity in appearance or signs of trauma. Extremities: Upper and lower extremities atraumatic without tenderness with footdrop to bilateral lower extremities Full range of motion and muscle strength 4/5 to upper extremities bilaterally.0/5 bilateral lower extremities. Muscle atrophy noted to bilateral lower extremities Neurological: Full and symmetric motor and decreased sensation to light touch sensation bilaterally. Cranial nerves II-XII grossly intact.
[2022-04-24 08:14] LABS: Glucose Point of Care 157 mg/dl (65-105)
[2022-04-24] MEDS: ENOXAPARIN 40 MG/0.4 ML SYRINGE SUB-Q (08:25)
[2022-04-24] MEDS: POTASSIUM CHLORIDE 20 MEQ TABLET 40 MEQ PO (08:25)
[2022-04-24] MEDS: CIPROFLOXACIN 250 MG TABLET 750 MG PO ×2 (10:11→20:47)
[2022-04-24 11:14] LABS: Glucose Point of Care 76 mg/dl (65-105)
--- NOTE | 2022-04-24 13:24 | PCOTNOTE ---
Attempted to see pt. for occupational therapy evaluation. Pt. refused at this time. Will follow.
--- NOTE | 2022-04-24 13:30 | PCPTNOTE ---
Physical therapy orders being DC at this time due to patient being at baseline at this time (kaitlin lift/bed bound). Physical therapy evaluation has been attempted 2x and refused by patient both times. Orders DC this date.
[2022-04-24 16:30] LABS: Glucose Point of Care 94 mg/dl (65-105)
[2022-04-24] MEDS: MELATONIN 5 MG TABLET PO (20:47)
[2022-04-24 22:57] LABS: Glucose Point of Care 107 mg/dl (65-105)
[2022-04-25] VITALS (10 sets, daily range): BP systolic 115–164; BP diastolic 40–54; PULSE 59–70; RESP 14–20; TEMP 36.4–36.6; O2SAT 97–100
[2022-04-25 05:57] LABS: Basophils Absolute Auto 0.1 K/mm3 (0.0-0.1); Basophils Percent Auto 0.9 % (0.2-1.2); Eosinophils Absolute Auto 0.4 K/mm3 (0-0.3); Eosinophils Percent Auto 5.2 % (0-4.4); Hematocrit 36.3 % (42.0-52.0); Hemoglobin 11.4 g/dL (14.0-18.0); Immature Granulocyte Absolute 0.03 K/mm3 (0.00-0.031); Immature Granulocyte Percent A 0.4 % (0-0.5); Lymphocytes Percent Auto 12.9 % (18.3-44.2); Mean Corpuscular HGB Conc 31.4 g/dl (32-36); Mean Corpuscular Hemoglobin 25.2 pg (26-34); Mean Corpuscular Volume 80.1 fl (80-100); Mean Platelet Volume 10.4 fl (7.4-10.4); Monocytes Absolute Auto 0.6 K/mm3 (0.1-0.6); Monocytes Percent Auto 9.2 % (2.6-8.5); Neutrophils Percent Auto 71.4 % (45.5-73.1); Platelet Count Result 216 k/mm3 (150-375); Red Blood Count 4.53 M/mm3 (4.6-6.20); Red Cell Distribution Width 18.6 % (11.5-14.5)
[2022-04-25 05:59] LABS: Albumin Level 3.2 g/dL (3.5-5.1); Alkaline Phosphatase 75 U/L (38-126); Anion Gap 6 mmol/L (8-16); Aspartate Amino Transferase 16 U/L (17-59); Bilirubin,Total 0.4 mg/dL (0.2-1.3); Blood Urea Nitrogen 9 mg/dL (9-20); Calcium 8.1 mg/dL (8.4-10.2); Carbon Dioxide 26 mmol/L (22-30); Chloride 105 mmol/L (98-107); Estimated CRCL calculation 63 ml/min; Estimated Glomerular Filt Rate > 60; Glucose 86 mg/dL (65-110); Potassium 3.8 mmol/L (3.4-5.0); Sodium 137 mmol/L (137-145)
[2022-04-25 06:23] LABS: Alanine Aminotransferase < 6 U/L (6-50)
--- NOTE | 2022-04-25 07:00 | PM.DS ---
DS: Admitting Diagnosis Discharge Date 04/25/2022 Admitting Diagnosis urinary tract infection Hypo magnesium Acute hypokalemia Seizure-like activity DS: Discharge Diagnosis Discharge Diagnosis (1) Acute UTI: Code(s): N39.0 - Urinary tract infection, site not specified Status: Acute Assessment and Plan: CBC, CMP, UA, reviewed Urine culture revealed Pseudomonas, patient has a history of VRE and E coli as well Follow temp curve, cultures, WBC, and VS Patient was initiated on ceftriaxone upon admission, however after urine cultures revealed Pseudomonas the patient was transitioned to ciprofloxacin b.i.d. (2) Hypomagnesemia: Code(s): E83.42 - Hypomagnesemia Status: Acute Assessment and Plan: Replacing electrolytes as needed Patient received 1 g magnesium sulfate in the emergency department -stable (3) Acute hypokalemia: Code(s): E87.6 - Hypokalemia Status: Acute Assessment and Plan: Replace serum electrolytes as needed Patient received 40 mEq of IVPB in the emergency department, with additional 40 mEq Klor-Con administered while the patient was admitted on the floor on 04/23/2022 Administered 40 mEq of Klor-Con due to a potassium of 3.3 on 04/24/2022 (4) Seizure-like activity: Code(s): R56.9 - Unspecified convulsions Status: Acute Assessment and Plan: continue to monitor no new events (5) Paroxysmal atrial fibrillation: Code(s): I48.0 - Paroxysmal atrial fibrillation Status: Acute Assessment and Plan: rate controlled (6) Chronic obstructive pulmonary disease: Code(s): J44.9 - Chronic obstructive pulmonary disease, unspecified Status: Acute Assessment and Plan: stable continue home meds (7) Hypertension: Code(s): I10 - Essential (primary) hypertension Status: Acute Assessment and Plan: continue home meds continue to monitor DS: Summary Hospital Course Reason for hospitalization: Urinary tract infection Hospital Course: patient is a 71-year-old male with a past medical history of COPD, cirrhosis, CHF, CAD, hypertension, REGULO, paroxysmal AFib and diabetes mellitus type 2. 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 Patient currently has bilateral lower extremity muscle wasting and atrophy. Since that time the patient was placed on hospice, however the patient noted to his home health nurse that he began to have involuntary movement of his right side therefore they advised him to come to the emergency department for further evaluation. At that time the patient revoked his hospice status as well as his code status. Patient reports previous to coming to the emergency department he was in his usual state of health. Preliminary workup in in the emergency department revealed a WBC of 9.5, hemoglobin 11.9, hematocrit 39, platelet 215, sodium 136, potassium 3.0, chloride 103, BUN 12, creatinine 0.9, negative troponin, normal LFTs and with a UA that revealed numerous wbc's. The head CT performed did not reveal acute intracranial abnormalities. The human resource internship obtain most of the information from his significant other that was at bedside in the emergency department. Therefore the patient was admitted for hypokalemia and a urinary tract infection. The patient received a dose of IV Rocephin in the emergency department and continued antibiotic therapy during his hospitalization stay. Serum electrolytes was replaced with 1 g magnesium sulfate IVPB and 40 mEq of potassium IVPB in the emergency department with additional 40 mEq Klor-Con administered while the patient was admitted on the floor on 04/23/2022. Patient continued to have low potassium levels and required additional oral supplementations during his hospitalization. No seizure-like activity was witnessed during his hospitalization. Patient has parox
[2022-04-25 07:33] LABS: Glucose Point of Care 104 mg/dl (65-105)
[2022-04-25] MEDS: ENOXAPARIN 40 MG/0.4 ML SYRINGE SUB-Q (09:23)
[2022-04-25] MEDS: CIPROFLOXACIN 250 MG TABLET 750 MG PO ×2 (09:23→20:19)
--- NOTE | 2022-04-25 10:48 | PM.IMPN ---
Progress Note: A&P Assessment and Plan (1) Acute UTI: Code(s): N39.0 - Urinary tract infection, site not specified Status: Acute Assessment and Plan: CBC, CMP, UA, reviewed Urine culture revealed Pseudomonas, patient has a history of VRE and E coli as well Follow temp curve, cultures, WBC, and VS Patient was initiated on ceftriaxone upon admission, however after urine cultures revealed Pseudomonas the patient was transitioned to ciprofloxacin b.i.d. (2) Hypomagnesemia: Code(s): E83.42 - Hypomagnesemia Status: Acute Assessment and Plan: Replacing electrolytes as needed Patient received 1 g magnesium sulfate in the emergency department -stable (3) Acute hypokalemia: Code(s): E87.6 - Hypokalemia Status: Acute Assessment and Plan: Replace serum electrolytes as needed Patient received 40 mEq of IVPB in the emergency department, with additional 40 mEq Klor-Con administered while the patient was admitted on the floor on 04/23/2022 Administered 40 mEq of Klor-Con due to a potassium of 3.3 on 04/24/2022 (4) Seizure-like activity: Code(s): R56.9 - Unspecified convulsions Status: Acute Assessment and Plan: continue to monitor no new events (5) Paroxysmal atrial fibrillation: Code(s): I48.0 - Paroxysmal atrial fibrillation Status: Acute Assessment and Plan: rate controlled (6) Chronic obstructive pulmonary disease: Code(s): J44.9 - Chronic obstructive pulmonary disease, unspecified Status: Acute Assessment and Plan: stable continue home meds (7) Hypertension: Code(s): I10 - Essential (primary) hypertension Status: Acute Assessment and Plan: continue home meds continue to monitor Subjective Date/time seen: 04/25/22 10:48 Patient was stable to discharge on 04/24/2022 however due to family's inability or refusal to pick the patient up and reported that he will live outside in a tent his discharge was held off until the following day on 04/25/2022. Family was again contacted for possible discharge today. 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 Therefore his discharge was discontinued this morning. Patient is clinically stable for discharge. I was informed by case management that the discharge had to be canceled due to unsafe discharge. Patient previously lived with his and other family members without difficulty and they were his primary caretakers.. Patient revoked his hospice prior to referral for observation. patient will remain full code during his hospitalization until he can be safely discharged to an appropriate facility to be managed by case management. Review of Systems Review of Systems: All systems reviewed & are unremarkable except as noted in HPI and below Exam Narrative: General: No acute distress. Mental Status: Awake, alert and oriented to person, place, and time with clear speech. Skin: Skin in warm, dry and intact without rashes or lesions. Head: Normocephalic and atraumatic. Eyes: Conjunctivae are clear without exudates or hemorrhage. Sclera is non-icteric. EOM are intact, PERRLA. Ears: The external ear and canal are non-tender and without swelling or discharge. Nose: Nasal mucosa is pink and moist. Septum midline. Nares patent bilaterally. Throat: Oral mucosa pink and moist with good dentition. Tongue midline. Neck: The neck supple without adenopathy. Trachea midline. No JVD. Cardiac: S1 and S2 regular rate and rhythm. No murmurs, gallops, or rubs auscultated. Respiratory: Chest wall symmetric, nontender and without deformity or trauma. Respirations even and unlabored. Lung sounds are clear to auscultation in all lobes bilaterally without wheezes, rhonchi, or rales. Abdominal: Abdomen soft, round and non-tender to palpation. Bowel sounds present and normoactive in all 4 quadrants. Spine: Neck and back with grossly normal curvature, no deformity in appearance or
[2022-04-25] MEDS: MELATONIN 5 MG TABLET PO (20:19)
[2022-04-26] VITALS (9 sets, daily range): BP systolic 143–175; BP diastolic 45–55; PULSE 60–95; RESP 14–16; TEMP 36.1–36.4; O2SAT 92–97
[2022-04-26 05:50] LABS: Basophils Absolute Auto 0.1 K/mm3 (0.0-0.1); Basophils Percent Auto 0.9 % (0.2-1.2); Eosinophils Absolute Auto 0.3 K/mm3 (0-0.3); Eosinophils Percent Auto 4.8 % (0-4.4); Hematocrit 37.3 % (42.0-52.0); Hemoglobin 11.5 g/dL (14.0-18.0); Immature Granulocyte Absolute 0.02 K/mm3 (0.00-0.031); Immature Granulocyte Percent A 0.3 % (0-0.5); Lymphocytes Absolute Auto 0.78 K/mm3 (0.9-3.2); Lymphocytes Percent Auto 11.7 % (18.3-44.2); Mean Corpuscular HGB Conc 30.8 g/dl (32-36); Mean Corpuscular Hemoglobin 24.6 pg (26-34); Mean Corpuscular Volume 79.9 fl (80-100); Mean Platelet Volume 9.8 fl (7.4-10.4); Monocytes Absolute Auto 0.6 K/mm3 (0.1-0.6); Monocytes Percent Auto 8.3 % (2.6-8.5); Neutrophils Absolute Auto 4.9 K/mm3 (1.3-6.7); Platelet Count Result 211 k/mm3 (150-375); Red Blood Count 4.67 M/mm3 (4.6-6.20); Red Cell Distribution Width 18.7 % (11.5-14.5); White Blood Count 6.7 K/mm3 (4.5-10.0)
[2022-04-26 06:01] LABS: Alanine Aminotransferase 7 U/L (6-50); Albumin Level 3.5 g/dL (3.5-5.1); Alkaline Phosphatase 74 U/L (38-126); Anion Gap 6 mmol/L (8-16); Aspartate Amino Transferase 15 U/L (17-59); Bilirubin,Total 0.4 mg/dL (0.2-1.3); Blood Urea Nitrogen 8 mg/dL (9-20); Calcium 8.1 mg/dL (8.4-10.2); Carbon Dioxide 29 mmol/L (22-30); Chloride 103 mmol/L (98-107); Estimated CRCL calculation 63 ml/min; Estimated Glomerular Filt Rate > 60; Glucose 100 mg/dL (65-110); Potassium 3.3 mmol/L (3.4-5.0); Sodium 138 mmol/L (137-145)
--- NOTE | 2022-04-26 06:54 | PM.IMPN ---
Progress Note: A&P Assessment and Plan (1) Acute UTI: Code(s): N39.0 - Urinary tract infection, site not specified Status: Acute Assessment and Plan: CBC, CMP, UA, reviewed Urine culture revealed Pseudomonas, patient has a history of VRE and E coli as well Follow temp curve, cultures, WBC, and VS Patient was initiated on ceftriaxone upon admission, however after urine cultures revealed Pseudomonas the patient was transitioned to ciprofloxacin b.i.d. Stop date for ciprofloxacin on 04/27/2022. (2) Hypomagnesemia: Code(s): E83.42 - Hypomagnesemia Status: Acute Assessment and Plan: Replacing electrolytes as needed Patient received 1 g magnesium sulfate in the emergency department -stable (3) Acute hypokalemia: Code(s): E87.6 - Hypokalemia Status: Acute Assessment and Plan: Replace serum electrolytes as needed Patient received 40 mEq of IVPB in the emergency department, with additional 40 mEq Klor-Con administered while the patient was admitted on the floor on 04/23/2022 Administered 40 mEq of Klor-Con due to a potassium of 3.3 on 04/24/2022 (4) Seizure-like activity: Code(s): R56.9 - Unspecified convulsions Status: Acute Assessment and Plan: continue to monitor no new events (5) Paroxysmal atrial fibrillation: Code(s): I48.0 - Paroxysmal atrial fibrillation Status: Acute Assessment and Plan: rate controlled (6) Chronic obstructive pulmonary disease: Code(s): J44.9 - Chronic obstructive pulmonary disease, unspecified Status: Acute Assessment and Plan: stable continue home meds (7) Hypertension: Code(s): I10 - Essential (primary) hypertension Status: Acute Assessment and Plan: continue home meds continue to monitor Subjective Date/time seen: 04/26/22 06:54 patient is alert and oriented this morning. [facility] Management currently working for findings if discharge for the patient. Family refused picked the patient up on 04/25/2022 therefore he was staying here for a safe discharge. No acute events overnight reported by RN.. Review of Systems Review of Systems: All systems reviewed & are unremarkable except as noted in HPI and below Exam Narrative: General: No acute distress. Mental Status: Awake, alert and oriented to person, place, and time with clear speech. Skin: Skin in warm, dry and intact without rashes or lesions. Head: Normocephalic and atraumatic. Eyes: Conjunctivae are clear without exudates or hemorrhage. Sclera is non-icteric. EOM are intact, PERRLA. Ears: The external ear and canal are non-tender and without swelling or discharge. Nose: Nasal mucosa is pink and moist. Septum midline. Nares patent bilaterally. Throat: Oral mucosa pink and moist with good dentition. Tongue midline. Neck: The neck supple without adenopathy. Trachea midline. No JVD. Cardiac: S1 and S2 regular rate and rhythm. No murmurs, gallops, or rubs auscultated. Respiratory: Chest wall symmetric, nontender and without deformity or trauma. Respirations even and unlabored. Lung sounds are clear to auscultation in all lobes bilaterally without wheezes, rhonchi, or rales. Abdominal: Abdomen soft, round and non-tender to palpation. Bowel sounds present and normoactive in all 4 quadrants. Spine: Neck and back with grossly normal curvature, no deformity in appearance or signs of trauma. Extremities: Upper and lower extremities atraumatic without tenderness with footdrop to bilateral lower extremities Full range of motion and muscle strength 4/5 to upper extremities bilaterally.0/5 bilateral lower extremities. Muscle atrophy noted to bilateral lower extremities Neurological: Full and symmetric motor and decreased sensation to light touch sensation bilaterally. Cranial nerves II-XII grossly intact. Urinary: Urinary catheter patent and draining Objective Data Vital S
[2022-04-26] MEDS: CIPROFLOXACIN 250 MG TABLET 750 MG PO ×2 (08:59→20:28)
[2022-04-26] MEDS: POTASSIUM CHLORIDE 20 MEQ TABLET 40 MEQ PO (08:59)
[2022-04-26] MEDS: ENOXAPARIN 40 MG/0.4 ML SYRINGE SUB-Q (09:00)
[2022-04-26] MEDS: ACETAMINOPHEN 325 MG TABLET 650 MG PO (17:34)
[2022-04-26] MEDS: MELATONIN 5 MG TABLET PO (20:29)
[2022-04-27] VITALS (9 sets, daily range): BP systolic 136–146; BP diastolic 52–60; PULSE 60–80; RESP 14–18; TEMP 36.2–36.6; O2SAT 96–100
--- NOTE | 2022-04-27 07:07 | PM.IMPN ---
Progress Note: A&P Assessment and Plan (1) Acute UTI: Code(s): N39.0 - Urinary tract infection, site not specified Status: Acute Assessment and Plan: CBC, CMP, UA, reviewed Urine culture revealed Pseudomonas, patient has a history of VRE and E coli as well Follow temp curve, cultures, WBC, and VS Patient was initiated on ceftriaxone upon admission, however after urine cultures revealed Pseudomonas the patient was transitioned to ciprofloxacin b.i.d. Stop date for ciprofloxacin on 04/27/2022. (2) Hypomagnesemia: Code(s): E83.42 - Hypomagnesemia Status: Acute Assessment and Plan: Replacing electrolytes as needed Patient received 1 g magnesium sulfate in the emergency department -stable (3) Acute hypokalemia: Code(s): E87.6 - Hypokalemia Status: Acute Assessment and Plan: Replace serum electrolytes as needed Patient received 40 mEq of IVPB in the emergency department, with additional 40 mEq Klor-Con administered while the patient was admitted on the floor on 04/23/2022 Administered 40 mEq of Klor-Con due to a potassium of 3.3 on 04/24/2022 (4) Seizure-like activity: Code(s): R56.9 - Unspecified convulsions Status: Acute Assessment and Plan: continue to monitor no new events (5) Paroxysmal atrial fibrillation: Code(s): I48.0 - Paroxysmal atrial fibrillation Status: Acute Assessment and Plan: rate controlled (6) Chronic obstructive pulmonary disease: Code(s): J44.9 - Chronic obstructive pulmonary disease, unspecified Status: Acute Assessment and Plan: stable continue home meds (7) Hypertension: Code(s): I10 - Essential (primary) hypertension Status: Acute Assessment and Plan: continue home meds continue to monitor Subjective Date/time seen: 04/27/22 07:07 patient is alert and oriented. Pending placement at a skilled facility. [facility] may accept. Pending on insurance authorization. No acute interventions need to be performed today. No acute events reported by gynecologist of Systems Review of Systems: All systems reviewed & are unremarkable except as noted in HPI and below Exam Narrative: General: No acute distress. Mental Status: Awake, alert and oriented to person, place, and time with clear speech. Skin: Skin in warm, dry and intact without rashes or lesions. Head: Normocephalic and atraumatic. Eyes: Conjunctivae are clear without exudates or hemorrhage. Sclera is non-icteric. EOM are intact, PERRLA. Ears: The external ear and canal are non-tender and without swelling or discharge. Nose: Nasal mucosa is pink and moist. Septum midline. Nares patent bilaterally. Throat: Oral mucosa pink and moist with good dentition. Tongue midline. Neck: The neck supple without adenopathy. Trachea midline. No JVD. Cardiac: S1 and S2 regular rate and rhythm. No murmurs, gallops, or rubs auscultated. Respiratory: Chest wall symmetric, nontender and without deformity or trauma. Respirations even and unlabored. Lung sounds are clear to auscultation in all lobes bilaterally without wheezes, rhonchi, or rales. Abdominal: Abdomen soft, round and non-tender to palpation. Bowel sounds present and normoactive in all 4 quadrants. Spine: Neck and back with grossly normal curvature, no deformity in appearance or signs of trauma. Extremities: Upper and lower extremities atraumatic without tenderness with footdrop to bilateral lower extremities Full range of motion and muscle strength 4/5 to upper extremities bilaterally.0/5 bilateral lower extremities. Muscle atrophy noted to bilateral lower extremities Neurological: Full and symmetric motor and decreased sensation to light touch sensation bilaterally. Cranial nerves II-XII grossly intact. Urinary: Urinary catheter patent and draining Objective Data Vital Signs Vital Signs: Vital Signs - 24 hr 04/26/22 08:00 04/26/22 08:00 04/26/22
[2022-04-27] MEDS: ENOXAPARIN 40 MG/0.4 ML SYRINGE SUB-Q (09:07)
[2022-04-27] MEDS: CIPROFLOXACIN 250 MG TABLET 750 MG PO ×2 (09:07→20:57)
[2022-04-27] MEDS: MELATONIN 5 MG TABLET PO (20:57)
[2022-04-27 21:01] LABS: Glucose Point of Care 86 mg/dl (65-105)
[2022-04-28] VITALS (9 sets, daily range): BP systolic 137–161; BP diastolic 49–76; PULSE 60–74; RESP 16–18; TEMP 36.1–36.4; O2SAT 97–100
[2022-04-28] MEDS: ENOXAPARIN 40 MG/0.4 ML SYRINGE SUB-Q (09:44)
[2022-04-28] MEDS: CIPROFLOXACIN 500 MG TAB PO ×2 (09:44→20:23)
--- NOTE | 2022-04-28 13:27 | P.DS_ITS ---
DS: Admitting Diagnosis Discharge Date 04/28/2022 1327 DS: Summary Time Spent with Patient Time attestation: Total time spent providing and/or coordinating discharge services: DS: Data Data Completed and Pending Labs on day of discharge: Labs from last 24 hours 04/27/22 20:55 POC Capillary Glucose 86 Discharge Plan Discharge Attending physician on discharge: Chance Gutierrez Consulting providers: Aimee Black Discharging Clinician: Jennifer Georges Anticipated Discharge Date/Time: 04/25/22 09:00 Patient Disposition: Inpatient Rehab Facility Activity: may shower and as tolerated Diet: as tolerated and heart healthy Discharge Instructions: Discharge disposition: assisted facility Take medications as prescribed and keep follow up appointments. Monitor blood pressures Avoid social areas, you wear a mask when in social settings Encouraged to continue with yearly vaccinations Return to the emergency department if he developed sudden shortness of breath, chest pain, nausea, vomiting, upset stomach or intractable diarrhea Return to the emergency department if you develop fever greater than 101.5 Follow-up with the primary care physician within 1-2 weeks Thank you for choosing [facility] for your healthcare needs Stand Alone Forms: General Discharge Information Follow-up/Referrals: [facility] KAY [Primary Care Provider] - 2 Weeks Discharge Medications: New ciprofloxacin HCl 500 mg Tablet 500 mg PO Q12HR Qty: 9 0RF Continued furosemide [Lasix] 20 mg tablet 40 mg feeding tube DAILY Qty: 0 0RF hyoscyamine sulfate 0.125 mg tablet 1 tablet feeding tube Q4H PRN (Reason: Secretions) diphenhydramine HCl [Banophen] 25 mg capsule 1 cap feeding tube Q6H PRN (Reason: Itching) venlafaxine 37.5 mg tablet 37.5 mg feeding tube DAILY Changed lorazepam 0.5 mg tablet 0.25 mg feeding tube Q4H PRN (Reason: Anxiety) Qty: 4 0RF Date of admission: 04/22/22 23:14 Primary Care Provider: [facility],MARY KAY Admitting Provider: Daquan Townsend V. Attending physician on admission: Daquan Townsend V. Condition: Stable
--- NOTE | 2022-04-28 17:00 | PM.IMPN ---
Progress Note: A&P Assessment and Plan (1) Acute UTI: Code(s): N39.0 - Urinary tract infection, site not specified Status: Acute Assessment and Plan: Urine culture revealed Pseudomonas in patient with chronic indwelling catheter. Continue ciprofloxacin 500 mg BID x 5 more days (total 10-day course) Follow temp curve, cultures, WBC, and VS (2) Hypomagnesemia: Code(s): E83.42 - Hypomagnesemia Status: Acute Assessment and Plan: Stable. Replacing electrolytes as needed Check Mag level in the am. (3) Acute hypokalemia: Code(s): E87.6 - Hypokalemia Status: Acute Assessment and Plan: Stable. Replace serum electrolytes as needed Repeat BMP tomorrow am. (4) Seizure-like activity: Code(s): R56.9 - Unspecified convulsions Status: Acute Assessment and Plan: No new seizure-like activity or postictal state. continue to monitor (5) Paroxysmal atrial fibrillation: Code(s): I48.0 - Paroxysmal atrial fibrillation Status: Chronic Assessment and Plan: Rate controlled. (6) Chronic obstructive pulmonary disease: Code(s): J44.9 - Chronic obstructive pulmonary disease, unspecified Status: Chronic Assessment and Plan: ?Not in acute exacerbation. ?continue home meds (7) Hypertension: Code(s): I10 - Essential (primary) hypertension Status: Chronic Assessment and Plan: Stable. Plan Patient stable for discharge. Placement pending authorization. Time Spent With Patient Time with patient: 15 - 25 minutes Subjective Date/time seen: 04/28/22 17:00 Interval history: No new complaints or overnight events. He reports his appetite is fair. Patient was accepted to [facility] for rehab and approved by [place], however, his would like him to be go to rehab in [place], which is closer to his daughter. Review of Systems Review of Systems: All systems reviewed & are unremarkable except as noted in HPI and below Exam Narrative: General: No acute distress. chronically ill older adult male. Lying in bed. Mental Status: Awake, alert and oriented to person, place, and time with clear speech. Skin: Fair, warm, dry and intact without rashes or lesions. Fair turgor. Head: Normocephalic and atraumatic. Eyes: Conjunctivae are clear without exudates or hemorrhage. EOM are intact, PERRL. Ears: The external ear and canal are non-tender and without swelling or discharge. Hearing grossly intact. Nose: Nasal mucosa is pink and moist. Throat: Oral mucosa pink and moist with poor dentition. Neck: Supple without adenopathy. No JVD. Cardiac: S1 and S2 regular rate and rhythm. No murmurs, gallops, or rubs auscultated. Respiratory: Respirations even and unlabored. Lung sounds are clear to auscultation in all lobes bilaterally without wheezes, rhonchi, or rales. Abdominal: Abdomen soft, round and non-tender to palpation.? Bowel sounds present and normoactive in all 4 quadrants. Extremities: muscle strength 4/5 to upper extremities bilaterally. 0/5 bilateral lower extremities.? Muscle atrophy noted to bilateral lower extremities Neurological: Full and symmetric motor and decreased sensation to light touch sensation bilaterally. Cranial nerves II-XII grossly intact. Urinary: Urinary catheter patent and draining, yellow urine. Objective Data Vital Signs Vital Signs: Vital Signs - 24 hr 04/27/22 19:32 04/27/22 20:00 04/27/22 20:00 Temperature 97.2 F L Pulse Rate 63 63 60 Respiratory Rate 18 18 Blood Pressure 136/54 L Pulse Oximetry 99 99 Oxygen Delivery Room Air 04/28/22 00:00 04/28/22 03:15 04/28/22 04:00 Temperature 97.3 F L Pulse Rate 67 61 74 Respiratory Rate 18 Blood Pressure 161/56 H Pulse Oximetry 100 Oxygen Delivery 04/28/22 08:00 04/28/22 08:00 04/28/22 12:00 Temperature Pulse Rate 74 73 Respiratory Rate Blood Pressure
[2022-04-28] MEDS: MELATONIN 5 MG TABLET PO (20:24)
[2022-04-28 20:59] LABS: Glucose Point of Care 105 mg/dl (65-105)
[2022-04-29] VITALS (9 sets, daily range): BP systolic 131–146; BP diastolic 59–109; PULSE 62–74; RESP 16–20; TEMP 36.2–36.3; O2SAT 95–98
[2022-04-29 06:19] LABS: Hematocrit 34.9 % (42.0-52.0); Hemoglobin 11.1 g/dL (14.0-18.0); Mean Corpuscular HGB Conc 31.8 g/dl (32-36); Mean Corpuscular Hemoglobin 25.1 pg (26-34); Mean Platelet Volume 9.4 fl (7.4-10.4); Platelet Count Result 214 k/mm3 (150-375); Red Blood Count 4.42 M/mm3 (4.6-6.20); Red Cell Distribution Width 19.1 % (11.5-14.5); White Blood Count 7.2 K/mm3 (4.5-10.0)
[2022-04-29 06:39] LABS: Anion Gap 7 mmol/L (8-16); Blood Urea Nitrogen 8 mg/dL (9-20); Calcium 8.3 mg/dL (8.4-10.2); Carbon Dioxide 24 mmol/L (22-30); Chloride 103 mmol/L (98-107); Estimated CRCL calculation 63 ml/min; Estimated Glomerular Filt Rate > 60; Glucose 99 mg/dL (65-110); Magnesium 1.6 mg/dL (1.6-2.3); Sodium 134 mmol/L (137-145)
[2022-04-29] MEDS: CIPROFLOXACIN 500 MG TAB PO ×2 (08:25→20:31)
[2022-04-29] MEDS: ENOXAPARIN 40 MG/0.4 ML SYRINGE SUB-Q (08:25)
--- NOTE | 2022-04-29 09:20 | PCNWS ---
Weekly nutritional screen. Patient is tolerating a heart healthy diet with 50-100% intake most meals. No weight loss reported. No nutritional needs at this time.
--- NOTE | 2022-04-29 17:35 | PM.IMPN ---
Progress Note: A&P Assessment and Plan (1) Acute UTI: Code(s): N39.0 - Urinary tract infection, site not specified Status: Acute Assessment and Plan: Urine culture revealed Pseudomonas in patient with chronic indwelling catheter. Continue ciprofloxacin 500 mg BID x 4 more days (total 10-day course) Follow temp curve, cultures, WBC, and VS (2) Hypomagnesemia: Code(s): E83.42 - Hypomagnesemia Status: Acute Assessment and Plan: Stable. (3) Acute hypokalemia: Code(s): E87.6 - Hypokalemia Status: Acute Assessment and Plan: Stable. (4) Seizure-like activity: Code(s): R56.9 - Unspecified convulsions Status: Acute Assessment and Plan: No new seizure-like activity or postictal state. continue to monitor (5) Paroxysmal atrial fibrillation: Code(s): I48.0 - Paroxysmal atrial fibrillation Status: Chronic Assessment and Plan: Rate controlled. Stable. (6) Chronic obstructive pulmonary disease: Code(s): J44.9 - Chronic obstructive pulmonary disease, unspecified Status: Chronic Assessment and Plan: ?Not in acute exacerbation. ?continue home meds (7) Hypertension: Code(s): I10 - Essential (primary) hypertension Status: Chronic Assessment and Plan: Stable. Plan Patient stable for discharge. Placement pending authorization. Time Spent With Patient Time with patient: 15 - 25 minutes Subjective Date/time seen: 04/29/22 17:35 Interval history: No new complaints or overnight events. Patient is still pending SNF authorization. Review of Systems Review of Systems: All systems reviewed & are unremarkable except as noted in HPI and below Exam Narrative: General: No acute distress. chronically ill older adult male. Lying in bed. Mental Status: Awake, alert and oriented to person, place, and time with clear speech. Skin: Fair, warm, dry and intact without rashes or lesions. Fair turgor. HEENT: Normocephalic. Conjunctivae are clear. EOM are intact, PERRL. Hearing grossly intact. Oral mucosa pink and moist with poor dentition. Neck: No JVD. Cardiac: S1 and S2 regular rate and rhythm. No murmurs, gallops, or rubs auscultated. Respiratory: Respirations even and unlabored. Lung sounds are with scattered rhonchi cleared by cough. Abdominal: Abdomen soft, round and non-tender to palpation.? Bowel sounds present and normoactive in all 4 quadrants. Extremities: muscle strength 4/5 LUE, 3/5 RUE, 3/5 LLE, 2/5 RLE.? Muscle atrophy noted to bilateral lower extremities Neurological: Full and symmetric motor and decreased sensation to light touch sensation bilaterally. Cranial nerves II-XII grossly intact. Urinary: Urinary catheter patent and draining, yellow urine. Objective Data Vital Signs Vital Signs: Vital Signs - 24 hr 04/28/22 19:34 04/28/22 20:00 04/28/22 20:00 Temperature 97.5 F L Pulse Rate 60 60 60 Respiratory Rate 18 18 Blood Pressure 137/49 L Pulse Oximetry 98 98 Oxygen Delivery Room Air 04/29/22 00:00 04/29/22 02:54 04/29/22 04:00 Temperature 97.4 F L Pulse Rate 69 64 63 Respiratory Rate 20 Blood Pressure 142/59 H Pulse Oximetry 97 Oxygen Delivery 04/29/22 08:00 04/29/22 08:30 04/29/22 12:00 Temperature Pulse Rate 70 69 Respiratory Rate Blood Pressure Pulse Oximetry Oxygen Delivery Room Air 04/29/22 14:34 04/29/22 16:00 Temperature 97.1 F L Pulse Rate 74 62 Respiratory Rate 16 Blood Pressure 131/67 Pulse Oximetry 98 Oxygen Delivery Intake/Output Intake/Output: Intake & Output 04/26/22 04/27/22 04/28/22 04/29/22 23:59 23:59 23:59 23:59 Intake Total 1495 790 940 440 Output Total 550 1000 1050 500 Balance 945 -210 -110 -60 Meds/Results Medications: Active Medications Generic Name Dose Route Start Last Admin Trade Name Freq PRN Reason Stop Dose Admin Salomon
[2022-04-29] MEDS: MELATONIN 5 MG TABLET PO (20:31)
[2022-04-30] VITALS: PULSE 64
[2022-04-30 04:00] VITALS: PULSE 62
[2022-04-30 04:09] VITALS: BP 121/48; PULSE 58; RESP 20; TEMP 36.4; O2SAT 95
[2022-04-30 08:03] VITALS: PULSE 64
--- NOTE | 2022-04-30 09:09 | PC.NURSE ---
covid swab sent to lab
[2022-04-30 09:26] LABS: EDCOVIDSCREEN Negative (Negative)
[2022-04-30] MEDS: ENOXAPARIN 40 MG/0.4 ML SYRINGE SUB-Q (09:37)
[2022-04-30] MEDS: CIPROFLOXACIN 500 MG TAB PO (09:37)
[2022-04-30 12:00] VITALS: PULSE 64
--- NOTE | 2022-04-30 12:21 | PM.DS ---
DS: Admitting Diagnosis Discharge Date 04/30/2022 1221 Admitting Diagnosis Acute UTI Hypomagnesemia Acute hypokalemia Seizure-like activity DS: Discharge Diagnosis Discharge Diagnosis (1) Acute UTI: Code(s): N39.0 - Urinary tract infection, site not specified Status: Acute (2) Hypomagnesemia: Code(s): E83.42 - Hypomagnesemia Status: Acute (3) Acute hypokalemia: Code(s): E87.6 - Hypokalemia Status: Acute (4) Seizure-like activity: Code(s): R56.9 - Unspecified convulsions Status: Acute (5) Generalized weakness: Code(s): R53.1 - Weakness Status: Acute (6) Type 2 diabetes mellitus: Code(s): E11.9 - Type 2 diabetes mellitus without complications Status: Chronic (7) History of stroke with residual deficit: Code(s): I69.30 - Unspecified sequelae of cerebral infarction Status: Acute DS: Summary Hospital Course Reason for hospitalization: Possible seizure Hospital Course: Dong Chacon is a 71-year-old male with past medical history significant for ischemic stroke with right-sided residual, COPD with nocturnal O2, HTN, HLD, type 2 diabetes mellitus, paroxysmal atrail fibrillation, and CAD. He is bed ridden and had been on hospice up until his presentation to the ED, as the family wanted medical treatment for possible seizure. On the day of admission, he was noted by his home nurse?to have involuntary movement of the right-sided. He was brought to the emergency room for evaluation.? Patient revoked his hospice status, as well as his code status. He was in his usual state of health up until this point.? Preliminary workup was significant for urinalysis with numerous WBCs present. Head CT did not show any acute intracranial abnormalities.? The patient was referred for observation and treated with IV Rocephin, initially. His magnesium level was 1.5 and he was treated with IV mag sulfate. Repeat magnesium level was 1.6 and stable. Potassium 3.0 during his hospital stay and he was treated with several doses of IV and oral potassium replacement. Repeat potassium was 4.0 and stable. Urine culture showed pseudomonas growth. He was transitioned to ciprofloxacin PO BID 500 mg PO BID to complete a 10-day course. The patient was ready for discharge, however, the patient's family wanted long-term placement. This was attempted to be arranged by Care Coordination through the [place], but could not be authorized until Wednesday04/28/22. The patient was accepted at [facility], however, the family then wanted the patient to have placement in [place]. He was eventually discharged to [facility] in [place]. He was discharged in stable condition. Status at Discharge Cognitive/behavioral status at discharge: Awake, oriented to person. Pleasant. Functional status at discharge: bed bound Overall status at discharge: patient is back to baseline Time Spent with Patient Time attestation: Total time spent providing and/or coordinating discharge services: Time spent: Less than 30 minutes Exam Narrative: General: No acute distress. Chronically ill older adult male. Lying in bed. Mental Status: Awake, alert, oriented to person. Respiratory: Respirations even and unlabored. Extremities: Right-sided weakness. Urinary: Urinary catheter patent and draining, yellow urine. DS: Data Data Completed and Pending Labs on day of discharge: Labs from last 24 hours 04/30/22 09:03 SARS-CoV-2 IgG/IgM Ag?Rapid Negative Imaging Radiologist's impression: Head CT? 04/22/22 19:14 IMPRESSION:? ? No acute intracranial process. Right maxillary sinus findings may reflect acute sinusitis in the appropriate clinical context. ? Discharge Plan Discharge Attending physician on discharge: Chance Gutierrez Consulting providers: Aimee Black ; Jennifer Georges ; Fabian Diaz ; Rafaela Marlow Discharging Clinician: Jennifer Georges Anticipate
== END 2022-04-30 13:18 ==
LOC: ANHED 22:07 → ANH2MED 04-23 00:49
PROVIDERS: Emergency Medicine; Nurse Practitioner Family; Physician Assistant; Admitting Provider Internal Medicine; Emergency Provider Emergency Medicine; Visit Provider Nurse Practitioner Family
DX: N39.0 Urinary tract infection, site not specified (principal); B96.5 Pseudomonas (aeruginosa) (mallei) (pseudomallei) as the cause of diseases classified elsewhere; E83.42 Hypomagnesemia; E87.6 Hypokalemia; R56.9 Unspecified convulsions; J96.11 Chronic respiratory failure with hypoxia; Z99.81 Dependence on supplemental oxygen; R53.1 Weakness; J44.9 Chronic obstructive pulmonary disease, unspecified; I69.351 Hemiplegia and hemiparesis following cerebral infarction affecting right dominant side; I69.320 Aphasia following cerebral infarction; I69.391 Dysphagia following cerebral infarction; R13.10 Dysphagia, unspecified; I69.311 Memory deficit following cerebral infarction; I48.0 Paroxysmal atrial fibrillation; K74.60 Unspecified cirrhosis of liver; I25.2 Old myocardial infarction; I25.10 Atherosclerotic heart disease of native coronary artery without angina pectoris; G47.33 Obstructive sleep apnea (adult) (pediatric); I11.9 Hypertensive heart disease without heart failure; E11.9 Type 2 diabetes mellitus without complications; Z20.822 Contact with and (suspected) exposure to COVID-19; Z79.51 Long term (current) use of inhaled steroids; Z95.0 Presence of cardiac pacemaker; Z95.1 Presence of aortocoronary bypass graft; Z95.4 Presence of other heart-valve replacement; Z93.1 Gastrostomy status; Z87.891 Personal history of nicotine dependence; Z66 Do not resuscitate
CPT/HCPCS: 36415; 70450; 80048; 80053; 80307; 81001; 82550; 82948; 83036; 83605; 83735; 84443; 84484; 85025; 85027; 87077; 87086; 87186; 87426; 93005; 96365; 96367; 96372; 99285; A9270; C9803; G0378; J0696; J1650; J3475